=== PATIENT | male | born 1975 | race Two or more races ===

== ENCOUNTER 2024-08-18 08:00 | Outpatient (RCR) | payer OTHER, SELFPAY ==
--- NOTE | 2024-07-30 14:38 | PT.ODAYNRPT ---
PT Outpatient Daily Note OP Daily Note Outpatient Physical Therapy Treatment Date: 07/30/24 Visit Reasons: complex tear medial meniscus left knee Subjective: Pt reports L knee is doing ok, continues to have pain on the inside of the knee especially with prolonged walking. Objective: Please see flow sheet for ther ex list. Assessment: Added TG squat exercise, pt demonstrated good knee mechanics. Plan: Continue with POC. Length of Time (minutes) of Treatment: 30 Minutes Procedure Charges Therapeutic Exercise 30 minutes: Yes
--- NOTE | 2024-08-03 08:47 | PTNOTE_ITS ---
PT Outpatient Daily Note OP Daily Note Outpatient Physical Therapy Treatment Date: 08/03/24 Visit Reasons: complex tear medial meniscus left knee Subjective: Pt reports overall L knee is progressing but certain movement aggravate knee pain such as getting out of the car. Objective: Please see flow sheet for ther ex list. 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 Plan: Continue with POC. Length of Time (minutes) of Treatment: 30 Minutes Procedure Charges Therapeutic Exercise 30 minutes: Yes
--- NOTE | 2024-08-05 09:19 | PTNOTE_ITS ---
PT Outpatient Daily Note OP Daily Note Outpatient Physical Therapy Treatment Date: 08/05/24 Visit Reasons: complex tear medial meniscus left knee Subjective: Pt reports occasional L knee pain mentioned that he has pain with twisting motion. C/o clicking and popping. Objective: Please see flow sheet for ther ex list. 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 Plan: Continue with POC, assess response to treatment. Length of Time (minutes) of Treatment: 30 Minutes Procedure Charges Therapeutic Exercise 30 minutes: Yes
--- NOTE | 2024-08-11 08:43 | PT.ODS1RPT ---
PT OP Progress/Discharge Note Date of Service: 08/11/24 Progress Note/DC Note Progress Note/Discharge Note: Progress Note Patient Information Visit Reasons: complex tear medial meniscus left knee Medical Diagnosis: s83.232a Treatment Dx #1: Left Knee Pain Treatment Dx #2: Left Knee Mobility Deficits Service Continue Service or Discharge: Continue Service Certification Date Certification Dates: 08/11/24 ti 11/11/24 Status Subjective: Pt's knee is slowly feeling better. Pt mention he's been able to put more pressure through the knee with walking, standing, and light ADLs. Pt still notice some tightness around the knee leading to difficulty with certain movement. Pt has limitation with balance, uneven surfaces, stairs, and deep squat. Pt will follow up with surgeon next month. Objective: Left Knee AROM: 0 deg to 130 deg Left Knee MMTs: grossly 3+/5 Left Hip MMTs: grossly 3+/5 SLS: 5 sec Assessment: Pt is slowly progressing with knee ROM and strength allowing him to perform light ADLs, ambulate, and stand with less limitation. Pt has not met goals and will continue to benefit from physicla therapy to increase knee strength and stability; thank you for your referrals. Plan: Continue with PT/POC and add 8 sessions (2 x wk for 4 wks) Procedure Charges Therapeutic Exercise 45 minutes: Yes
--- NOTE | 2024-08-13 09:29 | PT.ODAYNRPT ---
PT Outpatient Daily Note OP Daily Note Outpatient Physical Therapy Treatment Date: 08/13/24 Visit Reasons: complex tear medial meniscus left knee Subjective: Pt reports he continues to have occasional sharp pain but overall progress but slow. Objective: Please see flow sheet for ther ex list. Assessment: Strengthening interventions progress slow due to pt pain response and c/o sharp pain. Plan: Continue with pOC. Length of Time (minutes) of Treatment: 30 Minutes Procedure Charges Therapeutic Exercise 30 minutes: Yes
--- NOTE | 2024-08-18 08:32 | PT.ODS1RPT ---
PT OP Progress/Discharge Note Date of Service: 08/18/24 Progress Note/DC Note Progress Note/Discharge Note: Progress Note Patient Information Visit Reasons: complex tear medial meniscus left knee Medical Diagnosis: s83.232a Treatment Dx #1: Left Knee Pain Service Continue Service or Discharge: Continue Service Certification Date Certification Dates: 08/18/24 to 11/18/24 Status Subjective: Pt's knee is slowly getting better. Pt has been able to stand, walk, and perform ADLs with less limitation. Pt still notice some pain within the knee after certain movement, however, improved over last few weeks. Pt recently seen worker's comp doctor and wants patient to continue physical therapy. Objective: Left Knee AROM: 0 deg to 125 deg Left Knee MMTs: grossly 3+/5 Left Hip MMTs: grossly 3/5 SLS: 3 sec Assessment: Pt is progressing with knee AROM and strength allowing him to start light ADLs, ambulate, stand, and chores with less limitation. Pt has not met set goals and will continue to benefit from physical therapy; thank you for your referrals. Plan: Continue with PT/POC and add 8 sessions (2 x wk for 4 wks) Procedure Charges Therapeutic Exercise 30 minutes: Yes
--- NOTE | 2024-09-27 09:20 | PT.ODS1RPT ---
PT OP Progress/Discharge Note Date of Service: 09/27/24 Progress Note/DC Note Progress Note/Discharge Note: DC Note Patient Information Visit Reasons: complex tear medial meniscus left knee Service Discharge Date: 09/27/24 Status Assessment: Pt has been seen for 13 visits (eval + 12 visits). Pt last treated on 08/18/24. At this time Pt will be d/c from care due to plan of care 09/21/24. Pt did not meet set goals in therapy; thank you for your referrals.
== END 2024-08-28 23:59 | disposition home or self-care (01) ==
LOC: CPTX 08:00
PROVIDERS: PCP Internal Medicine; Referring Provider Orthopaedic Surgery; Visit Provider Orthopaedic Surgery
DX: M25.562 Pain in left knee (principal); R26.2 Difficulty in walking, not elsewhere classified; S83.232D Complex tear of medial meniscus, current injury, left knee, subsequent encounter; X58.XXXD Exposure to other specified factors, subsequent encounter
CPT/HCPCS: 97110

== ENCOUNTER 2025-06-30 07:10 | Inpatient (IN) | payer BC, SELFPAY ==
[2025-06-30] VITALS (30 sets, daily range): BP systolic 94–195; BP diastolic 68–123; PULSE 80–139; RESP 13–24; TEMP 36.6–36.7; O2SAT 92–99; BMI 39.1
--- NOTE | 2025-06-30 07:26 | EKG_ITS ---
[facility] Test Date: 2025-06-30 Pat Name: MAL DEL RIO Department: Room: - Gender: Male Bi Tri Operator: : 1975 Requested By: Luis Mar (KAMRON) Order Number: [id number] Reading MD: Luis Mar (RHEUMATOLOGY NURSE) Measurements Intervals [place] Rate: 99 P: 38 VA: 173 QRS: 31 QRSD: 110 T: 24 QT: 363 QTc: 467 Interpretive Statements SINUS RHYTHM No previous ECG available for comparison /store/S0/[id number]/ecg/[id number].pdf
--- NOTE | 2025-06-30 07:26 | XR_ITS ---
Examination: CT brain head without contrast. 2-D sagittal coronal reconstructions Date and time of exam:June 30, 2025, 0821 hours INDICATIONS: Onset confusion dizziness today CTDI: vol (mGy):53.8 DLP: (mGycm):1131 Technique: Multiple CT axial sections of the brain have been obtained, 5 mm slice thickness. Contrast has not been administered. 2-D sagittal, coronal reconstructions have been obtained Low dose protocols were performed. One or more of the following dose reduction techniques were used; automated exposure control, adjustment of the mA and/or KV according to patient size, use of iterative reconstruction technique. Findings: No significant ventricular enlargement. Intra-axial or extra-axial hemorrhage density is not seen. No mass effect or midline shift Basal cisterns are not remarkable. Fourth ventricle is midline. Cranial vault intact. Impression: Negative for acute hemorrhage, mass effect or midline shift Advise clinical correlation follow-up accordingly, if symptoms persist, as clinically warranted, consider brain MRI follow-up
--- NOTE | 2025-06-30 07:26 | XR_ITS ---
Examination: AP chest single view Technique one AP portable semiupright chest single view Date and time: June 30, 2025, 0809 hours, comparison February 10, 2019 INDICATIONS: Shortness of breath beginning 2 weeks ago. FINDINGS: Normal heart size. Lungs are clear. Moderate osteopenia IMPRESSION: No active disease.
[2025-06-30 08:12] LABS: Basophils # (Auto) 0.0 Thou/mm3 (0.0-0.2); Basophils % (Auto) 1 % (0-2.5); Eosinophils # (Auto) 0.0 Thou/mm3 (0.0-0.5); Eosinophils % (Auto) 0 % (0-10); Hematocrit 42.8 % (41.0-53.0); Hemoglobin 15.5 g/dL (13.5-16.0); Immature Granulocytes Auto 0.06 Thou/mm3 (0.00-0.00); Lymphocytes # (Auto) 0.8 Thou/mm3 (1.0-4.8); Lymphocytes % (Auto) 16 % (10-50); Mean Corpuscular HGB Conc 36.2 g/dl (31.0-37.0); Mean Corpuscular Hemoglobin 30.9 pg (25.0-35.0); Mean Corpuscular Volume 85 fL (80-100); Monocytes # (Auto) 0.9 Thou/mm3 (0.0-0.8); Monocytes % (Auto) 18 % (0-12); Neutrophils # (Auto) 3.3 Thou/mm3 (1.8-7.7); Neutrophils % (Auto) 65 % (37-80); Nucleated Red Blood Cell # 0.00 Thou/mm3 (0.00-0.00); Nucleated Red Blood Cell % 0 /100 WBC (0); Platelet Count 105 Thou/mm3 (140-440); RDW Standard Deviation 44.5 fL (35.1-43.9); Red Blood Count 5.01 Miln/mm3 (4.50-5.90); White Blood Count 5.1 Thou/mm3 (3.8-10.6)
[2025-06-30 08:28] LABS: Ammonia < 10 uMol/L (11-32)
[2025-06-30 08:30] LABS: Alanine Aminotransferase 48 U/L (10-49); Albumin, Serum 4.3 gm/dL (3.5-5.0); Albumin/Globulin Ratio 1.5 (1.2-2.2); Alcohol, Blood Medical < 3.0 mg/dL (0-10.0); Alkaline Phosphatase 133 U/L (46-116); Anion Gap 14 (7-16); Aspartate Amino Transferase 100 U/L (0-34); BUN/Creatinine Ratio 12 Ratio (12-20); Bilirubin,Total 1.4 mg/dL (0.3-1.2); Blood Urea Nitrogen 7 mg/dL (9-23); Calcium 8.8 mg/dL (8.3-10.6); Calcium (Corrected) 8.8 mg/dL (8.5-10.1); Carbon Dioxide 20.5 mMol/L (20.0-31.0); Chloride 82 mMol/L (98-107); Creatinine (Component) 0.6 mg/dL (0.6-1.3); Estimated Creatinine Clearance 177.1 mL/min (>60); Globulin 2.9 gm/dL (2.3-3.5); Glucose 123 mg/dL (74-106); Magnesium 1.8 mg/dL (1.6-2.6); Osmolality,Calculated 233 (275-295); Potassium 3.0 mMol/L (3.4-5.1); Total Protein 7.2 gm/dL (5.7-8.2); Troponin I < 0.020 ng/mL (0.0-0.045); eGFR > 60 See Note
[2025-06-30 08:31] LABS: Sodium 116 mMol/L (136-145)
[2025-06-30 08:32] LABS: INR 1.0 (0.9-1.3); Partial Thromboplastin Time 28.2 Seconds (22.0-36.0); Prothrombin Time 10.9 Seconds (9.0-12.2)
[2025-06-30 08:38] LABS: B-Type Natriuretic Peptide 82 pg/mL (0-100)
[2025-06-30] MEDS: SODIUM CHLORIDE 3%(Hypertonic) 500 ML in PRE-MIXED 1 BAG 30 ML IV (08:50)
--- NOTE | 2025-06-30 08:50 | PD.EDALCOH ---
ED Alcohol RME/HPI General Chief Complaint: Neuro Symptoms/Deficit Stated Complaint: FOREGETFUL, OFF BALANCE Time Seen by Provider: 06/30/25 07:38 Arrival date/time: 06/30/25 07:10 RME / HPI RME / HPI narrative: 50-year-old male here for evaluation of alcohol abuse and possible withdrawal symptoms. States that he has been on a binge since mid April drinking heavily daily greater than 30 cans of beer at a time. Stopped drinking 2 days ago. Yesterday started noticing difficulty ambulating and today started noticing that he was feeling a bit more confused. Denies any chest pain, abdominal pain, shortness of breath, fever, cough, other acute symptoms at present. Notes is well that he has been trying to increase his water consumption over the past couple of days drinking more water than usual. MD complaint: alcohol withdrawal and alcohol dependence Related Data Home Medications ?Medication ?Instructions ?Recorded ?Confirmed ferrous sulfate 325 mg (65 mg 325 mg PO QDAY 03/17/23 03/17/23 iron) tablet (Iron (ferrous sulfate)) Previous Rx's ?Medication ?Instructions ?Recorded metoclopramide HCl 5 mg tablet 5 mg PO BID 90 days #180 tabs 03/17/23 (Reglan) pantoprazole 40 mg tablet,delayed 40 mg PO BID 90 days #180 tabs 03/17/23 release (Protonix) Allergies Allergy/AdvReac Type Severity Reaction Status Date / Time No Known Allergies Allergy Verified 06/30/25 07:15 Review of Systems Review of Systems Systems Reviewed: All systems reviewed, normal except as documented Past Medical History Past Medical History Comments PMH COMMENT: Alcoholism ED Exam Narrative Physical exam: Constitutional: Awake, alert, anxious, diaphoretic. HEENT: Normocephalic, atraumatic, extraocular movements intact. Neck: Supple CV: Tachycardic rate and regular rhythm, no murmurs/rubs/gallops Lungs: Clear to auscultation BL, no respiratory distress. Abd: Soft, NT, ND, no HSM noted to palpation Extremities: No deformities, no edema noted Neuro: AAOx3, CN 2-12 GIBL, no acute neuro deficit noted. Skin: Warm, dry, intact Initial CIWA scoring 15. Course Course Course Narrative: 0850h: Patient coming in for alcohol withdrawal symptoms, difficulty ambulating yesterday feeling unsteady and mild confusion today with some visual hallucinations today, slight auditory hallucinations. CIWA scoring about 15. Mildly tachycardic. Initial sodium is critical at 116. Hypertonic saline ordered at 30 mL an hour, dose of Versed ordered. Potassium low at 3.0, initial replacement IV will be ordered. Additionally ordered IV thiamine. 0930h: Case discussed with ICU for admission. They will be down to see patient for admission. 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 Care 06/30/25 07:26 Active EKG (ED ONLY) *Do not use* NOW Care 06/30/25 07:[address] head/brain wo con Stat Exams 06/30/25 07:26 Completed EKG (ED Only) Stat Exams 06/30/25 07:26 Draft XR chest 1V portable Stat Exams 06/30/25 07:26 Completed Alcohol, Blood Medical Stat Lab 06/30/25 07:00 Completed Ammonia Stat Lab 06/30/25 07:00 Completed B-Type Natriuretic Peptide Stat Lab 06/30/25 07:00 Completed CBC Stat Lab 06/30/25 07:00 Completed Comprehensive Metabolic Panel Stat Lab 06/30/25 07:00 Completed Drug Screen,Urine Stat Lab 06/30/25 09:00 Completed Magnesium Stat Lab 06/30/25 07:00 Completed Partial Thromboplastin Time Stat Lab 06/30/25 07:00 Completed Prothrombin Time with INR Stat Lab 06/30/25 07:00 Completed Troponin I Stat Lab 06/30/25 07:00 Completed Urinalysis, C/S if Indicated Stat Lab 06/30/25 08:50 Completed Midazolam Inj [Versed Inj] Med 06/30/25 08:48 Discontinued 2 mg IVP X1 ONE POTASSIUM CHL 10 mEq IVPB [Kcl Ivpb] Med 06/30/25 09:28 Ordered 10 meq in 100 ml IV X1 SODIUM CHLORIDE 3%(Hypertonic) [Hypertonic Saline 3%] Med 06/30/25 08:40 Active 500 ml Pre-Mixed [Pre-mixed Bag] 1 bag IV X1 Thiamine Inj [Vitamin B-1 Inj] 250 mg Med 06/30/25 09:00 Discontinued Sodium Chloride 0.9% [Ns] 100 ml IV X1 Vital Signs Vital signs: Vital Signs Temperature 98 F 06/30/25 07:20 Pulse Rate 103 H 06/30/25 07:20 Respiratory Rate 17 06/30/25 07:20 Blood Pressure 172/116 H 06/30/25 07:20 Pulse Oximetry (%) 96 06/30/25 07:20 Oxygen Delivery Method Room Air 06/30/25 07:20 Discharge Plan Plan Patient Disposition: Admit Acute Care w/in Hospital Patient condition on transfer: Stable Prescriptions/Referrals Prescriptions/Med Rec: No Action ferrous sulfate [Iron (ferrous sulfate)] 325 mg (65 mg iron) Tablet 325 mg PO QDAY pantoprazole [Protonix] 40 mg Tablet,Delayed Release (Dr/Ec) 40 mg PO BID 90 Days Qty: 180 3RF metoclopramide HCl [Reglan] 5 mg Tablet 5 mg PO BID 90 Days Qty: 180 3RF Referrals: Angelito Garcia MD [Primary Care Provider, Internal Medicine] - In 1 week Problem List Clinical Impression: Alcohol withdrawal, Acute hyponatremia Patient/Caregiver Discharge Instructions Print Language: Nauruan Stand Alone Forms: Liliane Award Info., Patient Portal Info Letter Alcohol Patient data External records reviewed:: [facility] previous records Clinical information provided by:: patient and family Social determinants that could affect healthcare access:: alcohol use Patient has the following chronic illnesses:: Alcoholism How is presenting disease/condition affected by chronic disease/condition?: caused by Evaluation data The following diagnostics were reviewed and interpreted by me:: lab results Lab and/or radiology exams considered but not ordered:: None Interpretation Summary: Laboratory Results WBC 5.1 Thou/mm3 (3.8-10.6) 06/30/25 07:00 RBC 5.01 Miln/mm3 (4.50-5.90) 06/30/25 07:00 Hgb 15.5 g/dL (13.5-16.0) 06/30/25 07:00 Hct 42.8 % (41.0-53.0) 06/30/25 07:00 MCV 85 fL (80-100) 06/30/25 07:00 MCH 30.9 pg (25.0-35.0) 06/30/25 07:00 MCHC 36.2 g/dl (31.0-37.0) 06/30/25 07:00 RDW Std Deviation 44.5 fL (35.1-43.9) H 06/30/25 07:00 Plt Count 105 Thou/mm3 (140-440) L 06/30/25 07:00 Neut % (Auto) 65 % (37-80) 06/30/25 07:00 Lymph % (Auto) 16 % (10-50) 06/30/25 07:00 [place] % (Auto) 18 % (0-12) H 06/30/25 07:00 Eos % (Auto) 0 % (0-10) 06/30/25 07:00 Baso % (Auto) 1 % (0-2.5) 06/30/25 07:00 Neut # (Auto) 3.3 Thou/mm3 (1.8-7.7) 06/30/25 07:00 Lymph # (Auto) 0.8 Thou/mm3 (1.0-4.8) L 06/30/25 07:00 [place] # (Auto) 0.9 Thou/mm3 (0.0-0.8) H 06/30/25 07:00 Eos # (Auto) 0.0 Thou/mm3 (0.0-0.5) 06/30/25 07:00 Baso # (Auto) 0.0 Thou/mm3 (0.0-0.2) 06/30/25 07:00 Immature Gran # (Auto) 0.06 Thou/mm3 (0.00-0.00) H 06/30/25 07:00 Absolute Nucleated RBC 0.00 Thou/mm3 (0.00-0.00) 06/30/25 07:00 Immature Gran % 1 % (0-0) H 06/30/25 07:00 Nucleated RBC % 0 /100 WBC (0) 06/30/25 07:00 PT 10.9 Seconds (9.0-12.2) 06/30/25 07:00 INR 1.0 (0.9-1.3) 06/30/25 07:00 APTT 28.2 Seconds (22.0-36.0) 06/30/25 07:00 Sodium 116 mMol/L (136-145) L* 06/30/25 07:00 Potassium 3.0 mMol/L (3.4-5.1) L 06/30/25 07:00 Chloride 82 mMol/L (98-107) L 06/30/25 07:00 Carbon Dioxide 20.5 mMol/L (20.0-31.0) 06/30/25 07:00 Anion Gap 14 (7-16) 06/30/25 07:00 BUN 7 mg/dL (9-23) L 06/30/25 07:00 Creatinine 0.6 mg/dL (0.6-1.3) 06/30/25 07:00 Estim Creat Clear Calc 177.1 mL/min (>60) 06/30/25 07:00 eGFR > 60 See Note (60-) 06/30/25 07:00 BUN/Creatinine Ratio 12 Ratio (12-20) 06/30/25 07:00 Glucose 123 mg/dL (74-106) H 06/30/25 07:00 Calculated Osmolality 233 (275-295) L 06/30/25 07:00 Calcium 8.8 mg/dL (8.3-10.6) 06/30/25 07:00 Corrected Calcium 8.8 mg/dL (8.5-10.1) 06/30/25 07:00 Magnesium 1.8 mg/dL (1.6-2.6) 06/30/25 07:00 Total Bilirubin 1.4 mg/dL (0.3-1.2) H 06/30/25 07:00 AST 100 U/L (0-34) H 06/30/25 07:00 ALT 48 U/L (10-49) 06/30/25 07:00 Alkaline Phosphatase 133 U/L (46-116) H 06/30/25 07:00 Ammonia < 10 uMol/L (11-32) L 06/30/25 07:00 Troponin I < 0.020 ng/mL (0.0-0.045) 06/30/25 07:00 B-Natriuretic Peptide 82 pg/mL (0-100) 06/30/25 07:00 Total Protein 7.2 gm/dL (5.7-8.2) 06/30/25 07:00 Albumin 4.3 gm/dL (3.5-5.0) 06/30/25 07:00 Globulin 2.9 gm/dL (2.3-3.5) 06/30/25 07:00 Albumin/Globulin Ratio 1.5 (1.2-2.2) 06/30/25 07:00 Ur Collection Type Clean Catch 06/30/25 08:50 Urine Color Yellow (Lt Yel-Yel) 06/30/25 08:50 Urine Clarity Turbid (Clear/Hazy) A 06/30/25 08:50 Urine pH 7.5 (5.0-7.0) H 06/30/25 08:50 Ur Specific [place] 1.016 (1.001-1.035) 06/30/25 08:50 Urine Protein 1+ (Neg - Trace) A 06/30/25 08:50 Urine Glucose (UA) Negative (Negative) 06/30/25 08:50 Urine Ketones 3+ (Negative) A 06/30/25 08:50 Urine Blood Trace (Negative) 06/30/25 08:50 Urine Nitrite Negative (Negative) 06/30/25 08:50 Urine Bilirubin Negative (Negative) 06/30/25 08:50 Urine Urobilinogen (Auto) 2.0 mg/dL (0.0-1.0) 06/30/25 08:50 Ur Leukocyte Esterase Negative (Negative) 06/30/25 08:50 Urine RBC 8 /hpf (0-3) H 06/30/25 08:50 Urine WBC 1 /hpf (0-5) 06/30/25 08:50 Ur Squamous Epith Cells 0 /hpf (0-5) 06/30/25 08:50 Urine Bacteria Rare (None) 06/30/25 08:50 Ur Culture Indicated? Not Indicated 06/30/25 08:50 Urine Opiates Screen Negative (Negative) 06/30/25 09:00 Urine Fentanyl Screen Negative (Negative) 06/30/25 09:00 Ur Barbiturates Screen Negative (Negative) 06/30/25 09:00 U Amphetamin/Meth Scrn Negative (Negative) 06/30/25 09:00 U Benzodiazepines Scrn Negative (Negative) 06/30/25 09:00 U Cocaine Metab Screen Negative (Negative) 06/30/25 09:00 U Marijuana (THC) Screen Negative (Negative) 06/30/25 09:00 Ethyl Alcohol < 3.0 mg/dL (0-10.0) 06/30/25 07:00 echnique: Multiple CT axial sections of the brain have been obtained, 5 mm slice thickness. Contrast has not been administered. 2-D sagittal, coronal reconstructions have been obtained Low dose protocols were performed. One or more of the following dose reduction techniques were used; automated exposure control, adjustment of the mA and/or KV according to patient size, use of iterative reconstruction technique. Findings: No significant ventricular enlargement. Intra-axial or extra-axial hemorrhage density is not seen. No mass effect or midline shift Basal cisterns are not remarkable. Fourth ventricle is midline. Cranial vault intact. Impression: Negative for acute hemorrhage, mass effect or midline shift Advise clinical correlation follow-up accordingly, if symptoms persist, as clinically warranted, consider brain MRI follow-up Chest x-ray no acute findings. Medications / Prescriptions Medications or Prescriptions considered but not ordered:: none Medication administrations:: Medication Administration History Sodium Chloride 500 ml/ IV (Miscellaneous Supplies) 500 mls @ 30 mls/hr IV X1 ONE Stop: 07/01/25 01:19 Last Admin: 06/30/25 08:50 Dose: 30 mls/hr Documented By: BY Potassium Chloride (Kcl Ivpb) 10 meq in 100 mls @ 100 mls/hr IV X1 ONE Stop: 06/30/25 10:27 Discontinued Medications Thiamine HCl 250 mg/ Sodium (Chloride) 102.5 mls @ 205 mls/hr IV X1 ONE Stop: 06/30/25 09:29 Midazolam HCl (Midazolam Inj 1 Mg/Ml Vial 2 Ml) 2 mg IVP X1 ONE Stop: 06/30/25 08:49 as above Consultations Consultation(s) initiated? (list below): Yes Diagnosis Differential diagnosis alcohol: alcohol withdrawal delirium, hypomagnesemia, alcohol intoxication, alcohol ketoacidosis, alcohol withdrawal syndrome and other Most likely diagnosis given after review of the tests above:: Hyponatremia, alcohol withdrawal, alcohol abuse Admission Indicated Admission indicated?: indicated Admission Request Was there a request for admission?: Yes Admission Attestation Admission request attestation: Discussed case with [] from Hospitalist service regarding admission. Discussed patients ED course, exam findings, labs, and radiology results. The Hospitalist [agrees,declines] to accept the patient for admission. Disposition Plan Disposition Plan: Admit
[2025-06-30 09:11] LABS: Collection Type, Urine Clean Catch; Squamous Epithelial Cell,Urine 0 /hpf (0-5)
[2025-06-30 09:18] LABS: Bacteria,Urine Rare; Bilirubin,Urine Negative (Negative); Blood,Urine Trace (Negative); Clarity,Urine Turbid (Clear/Hazy); Color,Urine Yellow (Lt Yel-Yel); Culture Indicated,Urine Not Indicated; Glucose, Urine Negative (Negative); Ketones,Urine 3+ (Negative); Leukocyte Esterase,Urine Negative (Negative); Nitrite,Urine Negative (Negative); PH,Urine 7.5 (5.0-7.0); Protein,Urine 1+ (Neg - Trace); RBC,Urine 8 /hpf (0-3); Specific Gravity,Urine 1.016 (1.001-1.035); Urobilinogen,Urine 2.0 mg/dL (0.0-1.0); WBC,Urine 1 /hpf (0-5)
[2025-06-30] MEDS: THIAMINE INJ 250 MG in SODIUM CHLORIDE 0.9% 100 ML 205 MG IV (09:18)
[2025-06-30] MEDS: MIDAZOLAM INJ 1 MG/ML VIAL 2 ML 2 MG IVP (09:18)
[2025-06-30 09:27] LABS: Amphetamine/Methamp Scrn,U Negative (Negative); Barbiturate Screen,Urine Negative (Negative); Benzodiazepines Screen,Urine Negative (Negative); Benzoylecgonine Screen, Ur Negative (Negative); Fentanyl Screen,Urine Negative (Negative); Opiate Screen,Urine Negative (Negative); THC Screen,Urine Negative (Negative)
[2025-06-30 09:53] LABS: Base Excess, Venous 1 (-3-3); O2 Saturation, Venous 96 % (96-97); PCO2, Venous 27 mmHg (36-56); PO2, Venous 73 mmHg (15-58); pH, Venous 7.52 (7.33-7.66)
[2025-06-30] MEDS: POTASSIUM CHL 10 mEq IVPB 10 MEQ/100 ML BAG 100 MEQ IV (10:16)
--- NOTE | 2025-06-30 10:26 | ESPR_ITS ---
Documentation for date of: 06/30/25 Subjective Subjective Interval history: This is a 50-year-old male who presents to the ER for confusion. Patient's significant other notes that he has been drinking 30+ beers a day for the last 6 to 8 weeks. He was starting to wean himself down 2 days ago and only drank approximately 12. He had none on Friday or Friday because his partner refused to buy him anymore. Yesterday and this morning he was noted to be somewhat confused and had memory difficulties. He also had an abnormal gait and stated he was walking as if he were drunk even though he had not had any alcohol. Given these concerns his partner brought him to the ER. States that he has gone through withdrawal in the past and has had the shakes before. Denies ever having any seizures related to alcohol withdrawal. He denies any chest pain, shortness of breath, cough, fevers, chills or abdominal pain. Does note that he has had significant diarrhea for the last several days. PMH: GERD, status post gastric bypass, status post knee surgery for torn meniscus, status post rotator cuff tear repair Past social history: Alcohol abuse, has utilized cocaine in the past his last use was 6 months ago Meds: Vitamins ROS: As per HPI otherwise negative Critical Care Note Critical care time (min.): 0 Exam Vital Signs Temp Pulse Resp BP Pulse Ox O2 Del Method 98.0 F 96 18 143/99 H 94 L Room Air 06/30/25 07:38 06/30/25 09:00 06/30/25 09:00 06/30/25 09:00 06/30/25 09:00 06/30/25 09:00 Narrative Exam General-no acute distress, awake alert oriented x 4, obese HEENT-normocephalic, atraumatic, oral mucosa is dry, sclera icteric, EOMI Chest-lungs clear to auscultation bilaterally, heart regular rhythmic, no bruits murmurs auscultated times exam, no increased work of breathing, no use of accessory muscles Abdomen-obese, soft, nontender, bowel sounds present, no rebound or guarding Extremities-no edema, pulses palpable, no clubbing or cyanosis, no mottling, no focal neurological deficits, no shaking tremors noted Drips Hypertonic saline Physical Exam Completion Physical Exam Complete?: Yes Objective - Studio Operations Engineer In Charge Labs 07/01/25 05:00 07/01/25 09:00 Labs: Laboratory Results - last 24 hr 06/30/25 06/30/25 06/30/25 07:00 08:50 09:00 WBC 5.1 RBC 5.01 Hgb 15.5 Hct 42.8 MCV 85 MCH 30.9 MCHC 36.2 RDW Std Deviation 44.5 H Plt Count 105 L Neut % (Auto) 65 Lymph % (Auto) 16 [place] % (Auto) 18 H Eos % (Auto) 0 Baso % (Auto) 1 Neut # (Auto) 3.3 Lymph # (Auto) 0.8 L [place] # (Auto) 0.9 H Eos # (Auto) 0.0 Baso # (Auto) 0.0 Immature Gran # (Auto) 0.06 H Absolute Nucleated RBC 0.00 Immature Gran % 1 H Nucleated RBC % 0 PT 10.9 INR 1.0 APTT 28.2 VBG pH VBG pCO2 VBG pO2 VBG O2 Sat (Isauro) VBG Base Excess Sodium 116 L* Potassium 3.0 L Chloride 82 L Carbon Dioxide 20.5 Anion Gap 14 BUN 7 L Creatinine 0.6 Estim Creat Clear Calc 177.1 eGFR > 60 BUN/Creatinine Ratio 12 Glucose 123 H Calculated Osmolality 233 L Calcium 8.8 Corrected Calcium 8.8 Magnesium 1.8 Total Bilirubin 1.4 H AST 100 H ALT 48 Alkaline Phosphatase 133 H Ammonia < 10 L Troponin I < 0.020 B-Natriuretic Peptide 82 Total Protein 7.2 Albumin 4.3 Globulin 2.9 Albumin/Globulin Ratio 1.5 Ur Collection Type Clean Catch Urine Color Yellow Urine Clarity Turbid A Urine pH 7.5 H Ur Specific [place] 1.016 Urine Protein 1+ A Urine Glucose (UA) Negative Urine Ketones 3+ A Urine Blood Trace Urine Nitrite Negative Urine Bilirubin Negative Urine Urobilinogen (Auto) 2.0 Ur Leukocyte Esterase Negative Urine RBC 8 H Urine WBC 1 Ur Squamous Epith Cells 0 Urine Bacteria Rare Ur Culture Indicated? Not Indicated Urine Opiates Screen Negative Urine Fentanyl Screen Negative Ur Barbiturates Screen Negative U Amphetamin/Meth Scrn Negative U Benzodiazepines Scrn Negative U Cocaine Metab Screen Negative U Marijuana (THC) Screen Negative Ethyl Alcohol < 3.0 06/30/25 09:47 WBC RBC Hgb Hct MCV MCH MCHC RDW Std Deviation Plt Count Neut % (Auto) Lymph % (Auto) [place] % (Auto) Eos % (Auto) Baso % (Auto) Neut # (Auto) Lymph # (Auto) [place] # (Auto) Eos # (Auto) Baso # (Auto) Immature Gran # (Auto) Absolute Nucleated RBC Immature Gran % Nucleated RBC % PT INR APTT VBG pH 7.52 VBG pCO2 27 L VBG pO2 73 H VBG O2 Sat (Isauro) 96 VBG Base Excess 1 Sodium Potassium Chloride Carbon Dioxide Anion Gap BUN Creatinine Estim Creat Clear Calc eGFR BUN/Creatinine Ratio Glucose Calculated Osmolality Calcium Corrected Calcium Magnesium Total Bilirubin AST ALT Alkaline Phosphatase Ammonia Troponin I B-Natriuretic Peptide Total Protein Albumin Globulin Albumin/Globulin Ratio Ur Collection Type Urine Color Urine Clarity Urine pH Ur Specific [place] Urine Protein Urine Glucose (UA) Urine Ketones Urine Blood Urine Nitrite Urine Bilirubin Urine Urobilinogen (Auto) Ur Leukocyte Esterase Urine RBC Urine WBC Ur Squamous Epith Cells Urine Bacteria Ur Culture Indicated? Urine Opiates Screen Urine Fentanyl Screen Ur Barbiturates Screen U Amphetamin/Meth Scrn U Benzodiazepines Scrn U Cocaine Metab Screen U Marijuana (THC) Screen Ethyl Alcohol Assessment & Plan Additional Assessment Additional Assessment: In brief this is a 50-year-old male being admitted to the ICU for severe symptomatic hyponatremia on hypertonic saline a/p DIRECTOR OF MARKETING COMMUNICATIONS ETOH withdrawal- start on CIWA, give thiamine and folate CV HTN urgency- in the setting of withdrawal, prn labetalol and tx withdrawal Resp stable Renal HypoNa- 2/2 beer potomania, anticipate that will self correct with fluid restrict. given sxs of mental confusion it is reasonable to start HTS however once Na is 120 would stop. HypoK- replete PO GI ETOH hepatitis- AST elevated, will fu on AM labs Endo stable Heme Thrombocytopenia- 2/2 ETOH abuse - no active bleeding DVT proph- lovenox ID stable case d/w ICU team labs, imaging, records reviewed ~75min required for eval, exam, review, intervention, discussion and formulation of POC Provider Notation Provider Notation: Although this document has been carefully reviewed, there may still be some phonetic and other typographical errors. These errors are purely grammatical due to imperfections in the software program and should not be construed in any way to compromise the substance of the patient's medical care during this visit. Thank you for the opportunity and privilege in assisting you with this patient's care and management.
[2025-06-30 10:29] LABS: Magnesium 1.8 mg/dL (1.6-2.6)
[2025-06-30] MEDS: ENOXAPARIN SOD INJ 40 MG/0.4 ML SYRINGE SC (11:13)
[2025-06-30 11:36] LABS: Sodium 118 mMol/L (136-145)
--- NOTE | 2025-06-30 11:49 | XR_ITS ---
Examination: Abdomen sonogram, Limited Date and time of exam: June 30, 2025, 1216 hours INDICATIONS: Elevated liver function tests on laboratory examination today. Technique: Real-time tilley scale transabdominal sonographic images of the upper abdomen obtained. Findings: Negative for gallstones Gallbladder wall 0.40 cm no edema Common bile duct pancreas obscured by bowel gas Liver 19.1 cm fatty infiltration no focal liver lesions Normal hepatopedal portal venous flow Patent IVC IMPRESSION: Negative for gallstones Borderline thickening gallbladder wall 0.40 cm, clinical correlation advised, consider HIDA scan or MRCP follow-up to exclude cholecystitis Moderate hepatomegaly
--- NOTE | 2025-06-30 11:56 | PC.NURSE ---
sodium fluids to be stopped per MD @ [id number]
[2025-06-30] MEDS: DIAZEPAM INJ 5 MG/ML VIAL 2 ML IVP ×2 (12:17→20:00)
[2025-06-30] MEDS: FOLIC ACID 1 MG TABLET PO (12:20)
--- NOTE | 2025-06-30 12:30 | ESHP_ITS ---
<Statement entered by Glenn Coelho MD - 06/30/25 15:04> This patient is a 50-year-old male with past medical history of GERD presented to the ED on 06/30/2025 with chief complaint of confusion and loss of balance. Patient reports to have history of drinking alcohol moderately over the past 6 weeks exceeding 30 cans of beer every day with minimal food intake. Patient's partner was present at the bedside and she reported that she has noticed patient's appetite being reduced and he has been drinking a lot of water. She also reported that she noticed him getting confused with memory difficulties. Patient endorsed having shaking and visual hallucinations where he decided to take medical attention. He also had a week episode of loose stools. He endorsed dry heaves without vomiting. CIWA score was 7. Initial vitals showed blood pressure elevated at 172/116 heart rate 103. Labs were significant for sodium 116, potassium 3.0. Kidney functions were normal. T. bili 1.4. Elevated AST 100. Ammonia less than 10. Urinalysis showed proteins and ketones. Head CT showed no acute hemorrhage, mass effect or midline shift. Patient is admitted for management of hyponatremia and alcohol withdrawal with possible neurological symptoms. Patient was started on hypertonic saline in the ED. Will continue with sodium checks Q1 hourly. Fluid restriction up to 1 L. Goal of sodium is up to 6 mEq in first 24 hours. For the patient it is up to 122 until morning 7 AM. If rapidly corrected, consider D5W. Electrolytes were repleted. IV labetalol 10 mg was added as needed due to hypertensive urgency for systolic blood pressure above 180 and diastolic blood pressure about 105. Will likely follow-up with sodium checks and neurochecks. I discussed and supervised with the summer intern physician who took care of this patient. I personally saw and examined the patient. I agree with most of the assessment and plan. Disclaimer: Despite multiple revisions, due to the dictation software being used, the document bellow may not be free of grammatical errors including phonetic/typographic errors. However, this does not deter from our commitment to providing health care in the patient's best interest in mind. Plan of care discussed with Condemnation Engineer ,Dr. David Coelho MD PGY-3 Documentation for date of: 06/30/25 HPI History of Present Illness History of present illness: 50-year-old male with a past medical history of obstructive sleep apnea, GERD and alcohol use disorder who presented to the ED on 06/30/2025 with confusion and loss of balance. Patient reports heavy alcohol intake over the past six weeks, sometimes exceeding 30 cans of alcohol per day, with minimal food intake. Patient's last meal was about two weeks ago. His last alcoholic drink was two days ago (06/28 at 10 PM). For the past day or two, the patient has experienced abnormal gait. He sought medical attention after his noticed patient having increasing confusion and memory difficulties. The patient denies any falls, loss of consciousness, or seizure-like activity. Patient has experienced alcohol withdrawal symptoms in the past including shaking and visual and auditory hallucinations but this is his first time seeking medical care for these symptoms. He reports significant diarrhea for the last several days. Patient reports that he typically experiences diarrhea while drinking alcohol and not related to food intake, and denies blood in the stool. Patient endorses tremors, diaphoresis, and visual and auditory hallucinations but denies chest pain, palpitations, exertion, abdominal pain, fevers, or vomiting. ED Course: -Initial vitals were: BP 172/116, HR 103, RR 17, T 98F, O2 sat 96 on room air -Labs significant for: Plt count 105 (L), sodium 116 (L), potassium 3.0 (L), chloride 82 (L), BUN 7 (L), glucose 123 (H), Total bilirubin 1.4 (H), AST 100 (H), ALP 133 (H), Ammonia < 10 (L), UA showed 1+ protein, 3+ ketones, and RBCs. -Imaging included: CXR within normal limits; Head CT negative for acute hemorrhage, mass effect or midline shift. -In the ED, patient was given: Hypertonic saline, Potassium 10 mEq, Thiamine, Midazolam 2mg. Past Medical History: GERD, Obstructive sleep apnea Past Surgical History: gastric bypass, Left knee surgery for torn meniscus, Left rotator cuff tear repair. Family History: non-contributory. Social History: - Smoking: denies - Alcohol: heavy alcohol use - Illicit drugs: cocaine in the past, last use was 6 months ago. 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 Current Medications: none. Allergies: No known drug allergies. Patient admitted to the ICU for severe hyponatremia and alcohol withdrawal. Review of Systems Review of Systems Narrative Review of Systems: All review of systems are negative except as listed above in the HPI. Exam Vital Signs Temp Pulse Resp BP Pulse Ox O2 Del Method 98.0 F 97 20 148/104 H 93 L Room Air 06/30/25 07:38 06/30/25 11:05 06/30/25 11:05 06/30/25 11:05 06/30/25 11:05 06/30/25 11:05 Narrative Exam Physical Exam General: Awake and in no acute distress. Conversational and non-toxic appearing. Obese body habitus. Head: Normocephalic, atraumatic. Eyes: Pupils equally round and reactive to light. Anicteric. Mouth/Throat: Dry mucous membranes. Dry lips. No tongue lacerations. Heart: Regular rate and rhythm, no murmurs. No JVD. Lungs: Clear to auscultation with no wheezing or crackles. Non-labored respirations, symmetric chest rise, no use of accessory muscles. Abdomen: Soft, nontender. No guarding or rebound tenderness. No spider angiomas, no caput medusae, no fluid shift. Soft epigastric mass on palpation. Neurologic: Alert and oriented x4, no gross neurological deficit, and patient able to move all 4 extremities. Extremities: No edema. Posterior tibial pulses are 2+ bilaterally. 2+ radial pulse bilaterally. No clubbing or cyanosis. No mottling. Mild shaking hand tremors. 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 Skin: No rash. Bruising on right lateral lower leg. No jaundice. Psychiatric: Cooperative, anxious. Results: Labs 07/01/25 05:00 07/01/25 09:00 Labs: Short CBC 06/30/25 Range/Units 07:00 WBC 5.1 (3.8-10.6) Thou/mm3 Hgb 15.5 (13.5-16.0) g/dL Hct 42.8 (41.0-53.0) % Plt Count 105 L (140-440) Thou/mm3 BMP 06/30/25 06/30/25 07:00 11:07 Sodium 116 L* 118 L* Potassium 3.0 L Chloride 82 L Carbon Dioxide 20.5 BUN 7 L Creatinine 0.6 Glucose 123 H Calcium 8.8 Cardiac Enzymes 06/30/25 Range/Units 07:00 Troponin I < 0.020 (0.0-0.045) ng/mL Liver Function 06/30/25 Range/Units 07:00 Total Bilirubin 1.4 H (0.3-1.2) mg/dL AST 100 H (0-34) U/L ALT 48 (10-49) U/L Alkaline Phosphatase 133 H (46-116) U/L Albumin 4.3 (3.5-5.0) gm/dL Urine 06/30/25 Range/Units 08:50 Urine Color Yellow (Lt Yel-Yel) Urine Clarity Turbid A (Clear/Hazy) Urine pH 7.5 H (5.0-7.0) Ur Specific [place] 1.016 (1.001-1.035) Urine Protein 1+ A (Neg - Trace) Urine Glucose (UA) Negative (Negative) ABG Interpretation ABG results: 06/30/25 09:47 VBG pH 7.52 VBG pCO2 27 L VBG pO2 73 H VBG Base Excess 1 Quality Measures Quality Measures none Medications Home Medications and Allergies Home Medications ?Medication ?Instructions ?Recorded ?Confirmed ?Type No Known Home Medications 06/30/250 11/23 History Allergies Allergy/AdvReac Type Severity Reaction Status Date / Time No Known Allergies Allergy Verified 06/30/25 07:15 Visit Medications Diazepam (Diazepam Inj 5 Mg/Ml Vial 2 Ml) 2.5 mg IVP Q2HR PRN PRN Reason: CIWA SCORE 8-13 Stop: 07/05/25 11:45 Diazepam (Diazepam Inj 5 Mg/Ml Vial 2 Ml) 5 mg IVP Q2HR PRN PRN Reason: CIWA SCORE 14-19 Stop: 07/05/25 11:45 Last Admin: 06/30/25 12:17 Dose: 5 mg Diazepam (Diazepam Inj 5 Mg/Ml Vial 2 Ml) 10 mg IVP Q2HR PRN PRN Reason: CIWA SCORE 20-25 Stop: 07/05/25 11:45 Enoxaparin Sodium (Enoxaparin Sod Inj 40 Mg/0.4 Ml Syringe) 40 mg SC QDAY [facility] Stop: 07/14/25 10:59 Last Admin: 06/30/25 11:13 Dose: 40 mg Folic Acid (Folic Acid 1 Mg Tablet) 1 mg PO QDAY [facility] Stop: 07/30/25 12:14 Last Admin: 06/30/25 12:20 Dose: 1 mg Sodium Chloride 500 ml/ IV (Miscellaneous Supplies) 500 mls @ 30 mls/hr IV X1 ONE On Hold: 06/30/25 11:34 Stop: 07/01/25 01:19 Last Infusion: 06/30/25 11:40 Dose: 30 mls/hr Labetalol HCl (Labetalol Inj 5 Mg/Ml Vial 20 Ml) 10 mg IVP Q10M PRN PRN Reason: SBP > 180 or DBP > 110 Stop: 06/30/25 13:41 Ondansetron HCl (Ondansetron Inj 2 Mg/Ml Inj 2 Ml) 4 mg IVP Q6H PRN; Protocol PRN Reason: NAUSEA OR VOMITING Stop: 07/30/25 10:46 Pantoprazole Sodium (Pantoprazole Inj 40 Mg Vial) 40 mg IVP QDAY [facility] Stop: 07/30/25 10:59 Last Admin: 06/30/25 11:13 Dose: 40 mg Thiamine HCl (Thiamine 100 Mg Tablet) 100 mg PO QDAY [facility] Stop: 07/31/25 08:59 Discontinued Medications Thiamine HCl 250 mg/ Sodium (Chloride) 102.5 mls @ 205 mls/hr IV X1 ONE Stop: 06/30/25 09:29 Last Infusion: 06/30/25 10:57 Dose: Infused Potassium Chloride (Kcl Ivpb) 10 meq in 100 mls @ 100 mls/hr IV X1 ONE Stop: 06/30/25 10:27 Last Infusion: 06/30/25 11:20 Dose: Infused Midazolam HCl (Midazolam Inj 1 Mg/Ml Vial 2 Ml) 2 mg IVP X1 ONE Stop: 06/30/25 08:49 Last Admin: 06/30/25 09:18 Dose: 2 mg Potassium Chloride (Potassium Chloride 20 Meq Tabcr) 20 meq PO X1 ONE Stop: 06/30/25 11:59 Last Admin: 06/30/25 12:17 Dose: 20 meq Potassium Chloride (Potassium Chloride 20 Meq Tabcr) 40 meq PO X1 ONE Stop: 06/30/25 11:59 Last Admin: 06/30/25 12:17 Dose: 40 meq Assessment & Plan Plan A 50-year-old male with past medical history significant for GERD, obstructive sleep apnea and alcohol use disorder presents with confusion and abnormal gait, admitted to ICU for severe symptomatic hyponatremia and alcohol withdrawal. NEURO #Alcohol withdrawal #Alcohol use disorder Patient experiencing confusion, visual and auditory hallucination and mild hand tremors. These symptoms, along with history of heavy alcohol use and recent cessation, raise concern for withdrawal-related complications. DDx: metabolic derangement vs wernicke's encephalopathy vs stroke/TIA. Dx: - CIWA 13 on ICU admission, indicating moderate alcohol withdrawal. Rx: - Start CIWA protocol to titrate Valium as needed for symptom control. - Start thiamine 100mg PO daily to prevent and treat Wernicke's encephalopathy. - Start folic acid 1mg PO daily. - Monitor for seizures and delirium tremens. - Neuro check Q4HR. CARDIO #Hypertensive urgency In setting of alcohol withdrawal. Per patient, no history of hypertension. Dx: - Blood pressure on admission was 176/116. Rx: - Labetalol 10mg Q10M PRN for SBP >180 or DBP> 110. Hold for HR < 70. - Continue CIWA protocol for alcohol withdrawal symptoms. PULM #Obstructive sleep apnea Patient uses CPAP at night at home. Rx: - Patient brought in personal CPAP machine; functionality verified by hospital engineering. - Patient is familiar with device and able to use it independently. GI #GERD Rx: - IV Protonix 40 mg QD #Alcohol hepatitis #Transaminits Supsected alcohol-related liver injury based on clinical history and transaminitis pattern. Dx: - Admission AST 100. - Liver ultrasound: Negative for gallstones. Borderline thickening gallbladder wall. Moderate hepatomegaly. Rx: - Continue to monitor CMP and LFTs. - Continue thiamine 100mg PO daily and folic acid 1 mg PO daily. #Hiatal Hernia Dx: - Documented on EGD report in 02/2023. Rx: - Continue GERD management as above. NEPHRO #Severe hyponatremia with possible symptoms #Hypokalemia #Hypochloremia DDx: - Beer potomania: most likely given heavy alcohol use and poor nutritional intake. - Adrenal insufficiency: less likely given hypokalemia. - GI losses via diarrhea: possible contributor. - Intracranial patholgoy (trauma, stroke): unlikely given normal head CT and no history of trauma or focal deficits. Dx: - Admission sodium 116, potassium 3.0, chloride 82. Magnesium levels within normal limits. - Urine electrolytes - pending. - Head CT negative for acute hemorrhage, mass effect or midline shift. Rx: - Hypertonic saline started in ED since patient had mental confusion. Discontinued upon ICU admission when mental status returned to baseline. - Fluid restriction of 1000 mL/day. - Strict I&Qs. - Sodium checks Q2HR. - Goal sodium is 122 mmol/L over first 24 hours (avoid over-corrections of 8 or more mEq/L in 24 hours to avoid osmotic demyeliation syndrome). - Repleted potassium with 60 mEq. Continue to monitor and replete as needed. HEME #Thrombocytopenia Likely secondary to chronic alcohol abuse, as ethanol is toxic to megakaryocyte precursors in the bone marrow, leading to impaired platelet production. Dx: - Admission Plt 105. Rx: - Monitor CBC daily to track platelet trend. - Continue to monitor for signs of bleeding, including petechiae, bruising, or mucosal bleeding. - It Associate about alcohol cessation. - Levenox 40mg SQ QD for DVT prophylaxis. ENDO #No active problems ID #No active problems Health Maintenance DVT prophylaxis: Lovenox GI prophylaxis: None. IV protonix for GERD. Diet: Regular diet with fluid restriction 1L. Garrett: none Lines: Peripheral IV, Central IV Antibiotics: none CODE STATUS: FULL Patient plan of care was discussed with my senior resident and attending Dr. Hernandez. Trey Oliver, DO Internal Medicine, PGY-1
[2025-06-30 13:11] LABS: Sodium 121 mMol/L (136-145)
[2025-06-30 13:51] LABS: Sodium 121 mMol/L (136-145)
[2025-06-30 14:43] LABS: Sodium 121 mMol/L (136-145)
[2025-06-30 15:42] LABS: Sodium 122 mMol/L (136-145)
[2025-06-30 16:31] LABS: Sodium 123 mMol/L (136-145)
[2025-06-30] MEDS: ACETAMINOPHEN 325 MG TABLET PO (16:54)
[2025-06-30] MEDS: FAMOTIDINE 20 MG TABLET PO (16:54)
[2025-06-30] MEDS: DEXTROSE 5%-WATER 1,000 ML 75 ML IV (16:58)
[2025-06-30] MEDS: LABETALOL INJ 5 MG/ML VIAL 20 ML 10 MG IVP (19:21)
[2025-06-30 19:35] LABS: Sodium 123 mMol/L (136-145)
[2025-06-30 21:30] LABS: Potassium 3.9 mMol/L (3.4-5.1)
[2025-06-30 21:45] LABS: Sodium 122 mMol/L (136-145)
[2025-06-30] MEDS: Magnesium Sulfate 2 GM Ivpb 2 GM/50 ML BAG IV (22:19)
[2025-06-30 23:28] LABS: Sodium 123 mMol/L (136-145)
[2025-07-01] VITALS (26 sets, daily range): BP systolic 106–154; BP diastolic 75–114; PULSE 76–187; RESP 13–24; TEMP 35.6–36.9; O2SAT 95–99; BMI 38.5
[2025-07-01 00:54] LABS: Sodium 122 mMol/L (136-145)
[2025-07-01] MEDS: DEXTROSE 5%-WATER 1,000 ML 25 ML IV (02:10)
[2025-07-01 02:33] LABS: Sodium 123 mMol/L (136-145)
[2025-07-01] MEDS: DIAZEPAM INJ 5 MG/ML VIAL 2 ML IVP (05:15)
[2025-07-01] MEDS: LABETALOL INJ 5 MG/ML VIAL 20 ML 10 MG IVP (05:16)
[2025-07-01 05:49] LABS: Basophils # (Auto) 0.1 Thou/mm3 (0.0-0.2); Basophils % (Auto) 1 % (0-2.5); Eosinophils # (Auto) 0.0 Thou/mm3 (0.0-0.5); Eosinophils % (Auto) 1 % (0-10); Hematocrit 42.6 % (41.0-53.0); Hemoglobin 15.0 g/dL (13.5-16.0); Immature Granulocytes Auto 0.08 Thou/mm3 (0.00-0.00); Lymphocytes # (Auto) 1.1 Thou/mm3 (1.0-4.8); Lymphocytes % (Auto) 20 % (10-50); Mean Corpuscular HGB Conc 35.2 g/dl (31.0-37.0); Mean Corpuscular Hemoglobin 31.1 pg (25.0-35.0); Mean Corpuscular Volume 88 fL (80-100); Monocytes # (Auto) 1.1 Thou/mm3 (0.0-0.8); Monocytes % (Auto) 20 % (0-12); Neutrophils # (Auto) 3.0 Thou/mm3 (1.8-7.7); Neutrophils % (Auto) 56 % (37-80); Nucleated Red Blood Cell # 0.00 Thou/mm3 (0.00-0.00); Nucleated Red Blood Cell % 0 /100 WBC (0); Platelet Count 126 Thou/mm3 (140-440); RDW Standard Deviation 47.8 fL (35.1-43.9); Red Blood Count 4.82 Miln/mm3 (4.50-5.90); White Blood Count 5.3 Thou/mm3 (3.8-10.6)
[2025-07-01 05:52] LABS: INR 1.0 (0.9-1.3); Partial Thromboplastin Time 28.1 Seconds (22.0-36.0); Prothrombin Time 10.9 Seconds (9.0-12.2)
[2025-07-01 05:57] LABS: Alanine Aminotransferase 47 U/L (10-49); Albumin, Serum 4.0 gm/dL (3.5-5.0); Albumin/Globulin Ratio 1.5 (1.2-2.2); Alkaline Phosphatase 118 U/L (46-116); Anion Gap 10 (7-16); Aspartate Amino Transferase 66 U/L (0-34); BUN/Creatinine Ratio 10 Ratio (12-20); Bilirubin,Total 0.9 mg/dL (0.3-1.2); Blood Urea Nitrogen 6 mg/dL (9-23); Calcium 8.6 mg/dL (8.3-10.6); Calcium (Corrected) 8.6 mg/dL (8.5-10.1); Carbon Dioxide 24.9 mMol/L (20.0-31.0); Cardiac Risk Estimate 2.3 RATIO (4.0-6.7); Chloride 89 mMol/L (98-107); Cholesterol 161 mg/dL (132-200); Creatinine (Component) 0.6 mg/dL (0.6-1.3); Estimated Creatinine Clearance 177.1 mL/min (>60); Globulin 2.7 gm/dL (2.3-3.5); Glucose 96 mg/dL (74-106); HDL Cholesterol 71 mg/dL (40-60); LDL Cholesterol,Calculated 77 mg/dL (0-130); Magnesium 2.6 mg/dL (1.6-2.6); Osmolality,Calculated 247 (275-295); Phosphorous 2.5 mg/dL (2.4-5.1); Potassium 3.3 mMol/L (3.4-5.1); Sodium 124 mMol/L (136-145); Total Protein 6.7 gm/dL (5.7-8.2); Triglycerides 64 mg/dL (30-150); eGFR > 60 See Note
[2025-07-01 06:04] LABS: Glucose Estimated Average 103 mg/dL (80-131); Hemoglobin A1C 5.2 % Hgb (4.8-6.0)
[2025-07-01 07:52] LABS: Sodium 122 mMol/L (136-145)
[2025-07-01] MEDS: NAPH,KPH MBDB 1 PACKET (1.5 GM) PO (08:51)
[2025-07-01] MEDS: ENOXAPARIN SOD INJ 40 MG/0.4 ML SYRINGE SC (08:52)
[2025-07-01] MEDS: Magnesium Sulfate 2 GM Ivpb 2 GM/50 ML BAG IV (08:52)
[2025-07-01] MEDS: FOLIC ACID 1 MG TABLET PO (08:53)
[2025-07-01] MEDS: PANTOPRAZOLE 40 MG TABLET PO (08:54)
[2025-07-01] MEDS: THIAMINE 100 MG TABLET PO (08:54)
[2025-07-01 09:41] LABS: Sodium 124 mMol/L (136-145)
--- NOTE | 2025-07-01 10:32 | ESPR_ITS ---
<Statement entered by Glenn Coelho MD - 07/01/25 16:19> Patient was seen and examined in the ICU. Overnight, patient's sodium dropped to 122 therefore D5W was discontinued. This morning, patient's sodium level increased to 123 spontaneously. Patient was doing well and had mild improvement in his symptoms. He received Ciwa protocol with diazepam as his CIWA score was 14 at night. Blood pressure continues to remain elevated therefore lisinopril 20 mg was started. Urine output was 2.6 L over 24 hours. Due to improvement in his sodium to 125 patient will be downgraded to floors for continuation of care. Will continue fluid restriction. All labs and orders were reviewed. I discussed and supervised with the sports management internship physician who took care of this patient. I personally saw and examined the patient. I agree with most of the assessment and plan. Disclaimer: Despite multiple revisions, due to the dictation software being used, the document bellow may not be free of grammatical errors including phonetic/typographic errors. However, this does not deter from our commitment to providing health care in the patient's best interest in mind. Plan of care discussed with montessori toddler teacher Dr. David Coelho MD PGY-3 Documentation for date of: 07/01/25 Subjective Subjective Interval history: 50-year-old male with a past medical history of obstructive sleep apnea, GERD and alcohol use disorder presented to the ED on 06/30/2025 with confusion and loss of balance. Patient reports heavy alcohol intake over the past six weeks, sometimes exceeding 30 cans of alcohol per day, with minimal food intake. Patient's last meal was about two weeks ago. His last alcoholic drink was two days ago (06/28 at 10 PM). For the past day or two, the patient has experienced abnormal gait. He sought medical attention after his noticed patient having increasing confusion and memory difficulties. The patient denies any falls, loss of consciousness, or seizure-like activity. Patient has experienced alcohol withdrawal symptoms in the past including shaking, visual and auditory hallucinations but this is his first time seeking medical care for these symptoms. He reports significant diarrhea for the last several days. Patient reports that he typically experiences diarrhea while drinking alcohol and not related to food intake, and denies blood in the stool. Patient endorses tremors, diaphoresis, and visual and auditory hallucinations but denies chest pain, palpitations, exertion, abdominal pain, fevers, or vomiting. 07/01/2025: Overnight, the patient's sodium levels were monitored every two hours. Initially, the sodium level decreased to 122 while the patient was on D5W, prompting the discontinuation of the solution. At 2:17 AM, the sodium level increased slightly to 123, at which point D5W was reinitiated at a rate of 25 mL/hr for one hour. By 5:00 AM, the sodium level had risen to 124. As the patient approached the 24-hour althea with sodium goal at 122, no further interventions were made, and a check at 7:00 AM showed the sodium level had dropped back to 122. The target sodium level for the next 24 hours is 128. The patient's magnesium levels were replenished with 2g of magnesium, increasing the level from 1.8 to 2.6. The highest CIWA score recorded overnight was 14, for which the patient received a 5 mg dose of Diazepam. At one point, the patient's blood pressure increased to 154/114, and 10 mg of Labetalol was administered. The nursing staff noted the patient appeared anxious, leading to an additional dose of 5 mg Diazepam. Started patient on Lisinopril 20mg PO QD for better control of blood pressure. The patient's urine output was 108 mL/hr, totaling 2600 mL over 24 hours. The patient also reported not using his CPAP machine overnight, despite regular use at home. Exam Vital Signs Temp Pulse Resp BP Pulse Ox O2 Del Method 96.5 F L 187 H 20 127/92 H 97 Room Air 07/01/25 08:00 07/01/25 10:07/01/25 10:07/01/25 10:07/01/25 10:07/01/25 08:00 Narrative Exam Physical Exam General: Awake and in no acute distress. Conversational and non-toxic appearing. Obese body habitus. Head: Normocephalic, atraumatic. Eyes: Pupils equally round and reactive to light. Anicteric. Mouth/Throat: Moist mucous membranes. Heart: Regular rate and rhythm, no murmurs. No JVD. Lungs: Clear to auscultation with no wheezing or crackles. Non-labored respirations, symmetric chest rise, no use of accessory muscles. Abdomen: Soft, nontender. No guarding or rebound tenderness. No spider angiomas, no caput medusae, no fluid shift. Soft epigastric mass on palpation. Neurologic: Alert and oriented x4, no gross neurological deficit, and patient able to move all 4 extremities. Extremities: No edema. Posterior tibial pulses are 2+ bilaterally. 2+ radial pulse bilaterally. No clubbing or cyanosis. No mottling. No hand tremors. 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 Skin: No rash. Bruising on right lateral lower leg. No jaundice. Objective Labs 07/01/25 05:00 07/01/25 12:22 Labs: Laboratory Results - last 24 hr 06/30/25 06/30/25 06/30/25 09:00 11:07 12:10 WBC RBC Hgb Hct MCV MCH MCHC RDW Std Deviation Plt Count Neut % (Auto) Lymph % (Auto) [place] % (Auto) Eos % (Auto) Baso % (Auto) Neut # (Auto) Lymph # (Auto) [place] # (Auto) Eos # (Auto) Baso # (Auto) Immature Gran # (Auto) Absolute Nucleated RBC Immature Gran % Nucleated RBC % PT INR APTT Sodium 118 L* 121 L Potassium Chloride Carbon Dioxide Anion Gap BUN Creatinine Estim Creat Clear Calc eGFR BUN/Creatinine Ratio Glucose Estimated Ave Glu mg/dL Hemoglobin A1c Calculated Osmolality Calcium Corrected Calcium Phosphorus Magnesium Total Bilirubin AST ALT Alkaline Phosphatase Total Protein Albumin Globulin Albumin/Globulin Ratio Triglycerides Cholesterol LDL Cholesterol, Calc HDL Cholesterol Cholesterol/HDL Ratio Ur Random Creatinine Cancelled Ur Random Sodium Cancelled Ur Random Potassium Cancelled Ur Random Chloride Cancelled Ur Random Urea Nitrogn Cancelled 06/30/25 06/30/25 06/30/25 13:10 14:00 15:04 WBC RBC Hgb Hct MCV MCH MCHC RDW Std Deviation Plt Count Neut % (Auto) Lymph % (Auto) [place] % (Auto) Eos % (Auto) Baso % (Auto) Neut # (Auto) Lymph # (Auto) [place] # (Auto) Eos # (Auto) Baso # (Auto) Immature Gran # (Auto) Absolute Nucleated RBC Immature Gran % Nucleated RBC % PT INR APTT Sodium 121 L 121 L 122 L Potassium Chloride Carbon Dioxide Anion Gap BUN Creatinine Estim Creat Clear Calc eGFR BUN/Creatinine Ratio Glucose Estimated Ave Glu mg/dL Hemoglobin A1c Calculated Osmolality Calcium Corrected Calcium Phosphorus Magnesium Total Bilirubin AST ALT Alkaline Phosphatase Total Protein Albumin Globulin Albumin/Globulin Ratio Triglycerides Cholesterol LDL Cholesterol, Calc HDL Cholesterol Cholesterol/HDL Ratio Ur Random Creatinine Ur Random Sodium Ur Random Potassium Ur Random Chloride Ur Random Urea Nitrogn 06/30/25 06/30/25 06/30/25 16:13 18:54 21:05 WBC RBC Hgb Hct MCV MCH MCHC RDW Std Deviation Plt Count Neut % (Auto) Lymph % (Auto) [place] % (Auto) Eos % (Auto) Baso % (Auto) Neut # (Auto) Lymph # (Auto) [place] # (Auto) Eos # (Auto) Baso # (Auto) Immature Gran # (Auto) Absolute Nucleated RBC Immature Gran % Nucleated RBC % PT INR APTT Sodium 123 L 123 L 122 L Potassium 3.9 D Chloride Carbon Dioxide Anion Gap BUN Creatinine Estim Creat Clear Calc eGFR BUN/Creatinine Ratio Glucose Estimated Ave Glu mg/dL Hemoglobin A1c Calculated Osmolality Calcium Corrected Calcium Phosphorus Magnesium Total Bilirubin AST ALT Alkaline Phosphatase Total Protein Albumin Globulin Albumin/Globulin Ratio Triglycerides Cholesterol LDL Cholesterol, Calc HDL Cholesterol Cholesterol/HDL Ratio Ur Random Creatinine Ur Random Sodium Ur Random Potassium Ur Random Chloride Ur Random Urea Nitrogn 06/30/25 07/01/25 07/01/25 22:50 00:31 02:17 WBC RBC Hgb Hct MCV MCH MCHC RDW Std Deviation Plt Count Neut % (Auto) Lymph % (Auto) [place] % (Auto) Eos % (Auto) Baso % (Auto) Neut # (Auto) Lymph # (Auto) [place] # (Auto) Eos # (Auto) Baso # (Auto) Immature Gran # (Auto) Absolute Nucleated RBC Immature Gran % Nucleated RBC % PT INR APTT Sodium 123 L 122 L 123 L Potassium Chloride Carbon Dioxide Anion Gap BUN Creatinine Estim Creat Clear Calc eGFR BUN/Creatinine Ratio Glucose Estimated Ave Glu mg/dL Hemoglobin A1c Calculated Osmolality Calcium Corrected Calcium Phosphorus Magnesium Total Bilirubin AST ALT Alkaline Phosphatase Total Protein Albumin Globulin Albumin/Globulin Ratio Triglycerides Cholesterol LDL Cholesterol, Calc HDL Cholesterol Cholesterol/HDL Ratio Ur Random Creatinine Ur Random Sodium Ur Random Potassium Ur Random Chloride Ur Random Urea Nitrogn 07/01/25 07/01/25 07/01/25 05:00 07:00 09:00 WBC 5.3 RBC 4.82 Hgb 15.0 Hct 42.6 MCV 88 MCH 31.1 MCHC 35.2 RDW Std Deviation 47.8 H Plt Count 126 L Neut % (Auto) 56 Lymph % (Auto) 20 [place] % (Auto) 20 H Eos % (Auto) 1 Baso % (Auto) 1 Neut # (Auto) 3.0 Lymph # (Auto) 1.1 [place] # (Auto) 1.1 H Eos # (Auto) 0.0 Baso # (Auto) 0.1 Immature Gran # (Auto) 0.08 H Absolute Nucleated RBC 0.00 Immature Gran % 2 H Nucleated RBC % 0 PT 10.9 INR 1.0 APTT 28.1 Sodium 124 L 122 L 124 L Potassium 3.3 L D Chloride 89 L Carbon Dioxide 24.9 Anion Gap 10 BUN 6 L Creatinine 0.6 Estim Creat Clear Calc 177.1 eGFR > 60 BUN/Creatinine Ratio 10 L Glucose [address] Glu mg/dL 103 Hemoglobin A1c 5.2 Calculated Osmolality 247 L Calcium 8.6 Corrected Calcium 8.6 Phosphorus 2.5 Magnesium 2.6 Total Bilirubin 0.9 D AST 66 H ALT 47 Alkaline Phosphatase 118 H Total Protein 6.7 Albumin 4.0 Globulin 2.7 Albumin/Globulin Ratio 1.5 Triglycerides 64 Cholesterol 161 LDL Cholesterol, Calc 77 HDL Cholesterol 71 H Cholesterol/HDL Ratio 2.3 L Ur Random Creatinine Ur Random Sodium Ur Random Potassium Ur Random Chloride Ur Random Urea Nitrogn ABG Interpretation ABG results: 06/30/25 09:47 VBG pH 7.52 VBG pCO2 27 L VBG pO2 73 H VBG Base Excess 1 Quality Measures Quality Measures none Assessment & Plan Assessment Current Active Medications: Generic Name Dose Route Start Last Admin Trade Name Freq PRN Reason Stop Dose Admin Diazepam 2.5 mg 06/30/25 11:46 Diazepam Inj 5 Mg/Ml Vial 2 Ml IVP 07/05/25 11:45 Q2HR PRN CIWA SCORE 8-13 Diazepam 5 mg 06/30/25 11:46 07/01/25 05:15 Diazepam Inj 5 Mg/Ml Vial 2 Ml IVP 07/05/25 11:45 5 mg Q2HR PRN Administration CIWA SCORE 14-19 Diazepam 10 mg 06/30/25 11:46 Diazepam Inj 5 Mg/Ml Vial 2 Ml IVP 07/05/25 11:45 Q2HR PRN CIWA SCORE 20-25 Enoxaparin Sodium 40 mg 06/30/25 11:00 07/01/25 08:52 Enoxaparin Sod Inj 40 Mg/0.4 Ml Syringe SC 07/14/25 10:59 40 mg QDAY NATHAN Administration Folic Acid 1 mg 06/30/25 12:15 07/01/25 08:53 Folic Acid 1 Mg Tablet PO 07/30/25 12:14 1 mg QDAY NATHAN Administration Labetalol HCl 10 mg 06/30/25 15:38 07/01/25 05:16 Labetalol Inj 5 Mg/Ml Vial 20 Ml IVP 07/07/25 00:00 10 mg Q10M PRN Administration SBP > 180 or DBP > 110 Lisinopril 20 mg 07/01/25 09:15 07/01/25 09:36 Lisinopril 20 Mg Tablet PO 07/31/25 09:14 20 mg QDAY NATHAN Administration Ondansetron HCl 4 mg 06/30/25 10:47 Ondansetron Inj 2 Mg/Ml Inj 2 Ml IVP 07/30/25 10:46 Q6H PRN NAUSEA OR VOMITING Protocol Pantoprazole Sodium 40 mg 07/01/25 09:00 07/01/25 08:54 Pantoprazole 40 Mg Tablet PO 07/31/25 08:59 40 mg QDAY NATHAN Administration Potassium Chloride 40 meq 07/01/25 13:00 Potassium Chloride 20 Meq Tabcr PO 07/01/25 13:01 X1 ONE Thiamine HCl 100 mg 07/01/25 09:00 07/01/25 08:54 Thiamine 100 Mg Tablet PO 07/31/25 08:59 100 mg QDAY NATHAN Administration Plan A 50-year-old male with past medical history significant for GERD, obstructive sleep apnea and alcohol use disorder presents with confusion and abnormal gait, admitted to ICU for severe symptomatic hyponatremia and alcohol withdrawal. NEURO #Alcohol withdrawal #Alcohol use disorder Patient experiencing confusion, visual and auditory hallucination and mild hand tremors. These symptoms, along with history of heavy alcohol use and recent cessation, raise concern for withdrawal-related complications. DDx: metabolic derangement vs wernicke's encephalopathy vs stroke/TIA. Dx: - CIWA 13 on ICU admission, indicating moderate alcohol withdrawal. Rx: - Continue CIWA protocol to titrate Diazepam as needed for symptom control. - Continue thiamine 100mg PO daily to prevent and treat Wernicke's encephalopathy. - Continue folic acid 1mg PO daily. - Monitor for seizures and delirium tremens. - Neuro check Q4HR. CARDIO #Hypertensive urgency (resolved) #Hypertension Likely in setting of alcohol withdrawal. Per patient, no history of hypertension. Dx: - Blood pressure on admission was 176/116. - Labetalol 10 mg x1 for BP of 154/113 and Labetalol 10mg x1 for BP of 154/114. Rx: - Labetalol 10mg Q10M PRN for SBP >180 or DBP> 110. Hold for HR < 70. - Continue [facility] protocol for alcohol withdrawal symptoms. - Start Lisinopril 20mg PO QD for better control of blood pressure. - Follow up outpatient for further blood pressure management. PULM #Obstructive sleep apnea Patient uses CPAP at night at home. Rx: - Patient brought in personal CPAP machine; functionality verified by hospital engineering. - Patient is familiar with device and able to use it independently. GI #GERD Rx: - IV Protonix 40 mg QD. #Alcohol hepatitis (improving) #Transaminits (improving) Supsected alcohol-related liver injury based on clinical history and transaminitis pattern. Dx: - Admission AST 100. - Liver ultrasound: Negative for gallstones. Borderline thickening gallbladder wall. Moderate hepatomegaly. Rx: - Continue to monitor CMP and LFTs. - Continue thiamine 100mg PO daily and folic acid 1 mg PO daily. #Hiatal Hernia Dx: - Documented on EGD report in 02/2023. Rx: - Continue GERD management as above. NEPHRO #Severe hyponatremia (improving) #Hypokalemia #Hypochloremia DDx: - Beer potomania: most likely given heavy alcohol use and poor nutritional intake. - Adrenal insufficiency: less likely given hypokalemia. - GI losses via diarrhea: possible contributor. - Intracranial patholgoy (trauma, stroke): unlikely given normal head CT and no history of trauma or focal deficits. Dx: - Admission sodium 116, potassium 3.0, chloride 82, magnesium 1.8. - Urine electrolytes - pending. - Head CT negative for acute hemorrhage, mass effect or midline shift. Rx: - Hypertonic saline started in ED since patient had mental confusion. Discontinued upon ICU admission when mental status returned to baseline. - Continue fluid restriction of 1000 mL/day. - Strict I&Qs. - Sodium checks Q4HR. - Sodium goal of 122 mmol/L for first 24 hours (06/30 7AM - 07/01 7AM). - Sodium goal of 128 mmol/L for next 24 hours (07/01 7AM - 07/02 7AM). - Avoid over-corrections of 8 or more mEq/L in 24 hours to avoid osmotic demyeliation syndrome. - Replete potassium as needed. HEME #Thrombocytopenia Likely secondary to chronic alcohol abuse, as ethanol is toxic to megakaryocyte precursors in the bone marrow, leading to impaired platelet production. Dx: - Admission Plt 105. - Plt on 07/01: 126. Rx: - Monitor CBC daily to track platelet trend. - Continue to monitor for signs of bleeding, including petechiae, bruising, or mucosal bleeding. - manager of allied health services for resources for rehab. - Levenox 40mg SQ QD for DVT prophylaxis. ENDO #No active problems ID #No active problems Health Maintenance DVT prophylaxis: Lovenox GI prophylaxis: None. IV protonix for GERD. Diet: Regular diet with fluid restriction 1L. Garrett: none Lines: Peripheral IV, Central IV Antibiotics: none CODE STATUS: FULL Patient plan of care was discussed with my senior resident and attending Dr. Hernandez. Trey Oliver, Internal Medicine, PGY-1
[2025-07-01] MEDS: LIDOCAINE 5% 1 PATCH TOP (11:16)
--- NOTE | 2025-07-01 11:17 | PD.INTPROG ---
Documentation for date of: 07/01/25 Subjective Subjective Interval history: This is a 50-year-old male who presents to the ER for confusion. Patient's significant other notes that he has been drinking 30+ beers a day for the last 6 to 8 weeks. He was starting to wean himself down 2 days ago and only drank approximately 12. He had none on Friday or Friday because his partner refused to buy him anymore. Yesterday and this morning he was noted to be somewhat confused and had memory difficulties. He also had an abnormal gait and stated he was walking as if he were drunk even though he had not had any alcohol. Given these concerns his partner brought him to the ER. States that he has gone through withdrawal in the past and has had the shakes before. Denies ever having any seizures related to alcohol withdrawal. He denies any chest pain, shortness of breath, cough, fevers, chills or abdominal pain. Does note that he has had significant diarrhea for the last several days. 07/01- no acute overnight events, doing well this AM, no hallucinations, good UOP, afebrile Critical Care Note Critical care time (min.): 0 Exam Vital Signs Temp Pulse Resp BP Pulse Ox O2 Del Method 96.5 F L 187 H 20 127/92 H 97 Room Air 07/01/25 08:00 07/01/25 10:00 07/01/25 10:00 07/01/25 10:00 07/01/25 10:07/01/25 08:00 Narrative Exam Gen- NAD, AAOx4, obese HEENT- NC/AT, mucosa hydrated, sclera anicteric, EOMI Chest- LCTAB, HRRR Abd- obese, s/nt/bs+ Ext- no edema, pulses palp, no clubbing, no mottling, moves all 4 Physical Exam Completion Physical Exam Complete?: Yes Objective - Visual Merchandising Specialist Labs 07/01/25 05:00 07/01/25 09:00 Labs: Laboratory Results - last 24 hr 06/30/25 06/30/25 06/30/25 09:00 11:07 12:10 WBC RBC Hgb Hct MCV MCH MCHC RDW Std Deviation Plt Count Neut % (Auto) Lymph % (Auto) [place] % (Auto) Eos % (Auto) Baso % (Auto) Neut # (Auto) Lymph # (Auto) [place] # (Auto) Eos # (Auto) Baso # (Auto) Immature Gran # (Auto) Absolute Nucleated RBC Immature Gran % Nucleated RBC % PT INR APTT Sodium 118 L* 121 L Potassium Chloride Carbon Dioxide Anion Gap BUN Creatinine Estim Creat Clear Calc eGFR BUN/Creatinine Ratio Glucose Estimated Ave Glu mg/dL Hemoglobin A1c Calculated Osmolality Calcium Corrected Calcium Phosphorus Magnesium Total Bilirubin AST ALT Alkaline Phosphatase Total Protein Albumin Globulin Albumin/Globulin Ratio Triglycerides Cholesterol LDL Cholesterol, Calc HDL Cholesterol Cholesterol/HDL Ratio Ur Random Creatinine Cancelled Ur Random Sodium Cancelled Ur Random Potassium Cancelled Ur Random Chloride Cancelled Ur Random Urea Nitrogn Cancelled 06/30/25 06/30/25 06/30/25 13:10 14:00 15:04 WBC RBC Hgb Hct MCV MCH MCHC RDW Std Deviation Plt Count Neut % (Auto) Lymph % (Auto) [place] % (Auto) Eos % (Auto) Baso % (Auto) Neut # (Auto) Lymph # (Auto) [place] # (Auto) Eos # (Auto) Baso # (Auto) Immature Gran # (Auto) Absolute Nucleated RBC Immature Gran % Nucleated RBC % PT INR APTT Sodium 121 L 121 L 122 L Potassium Chloride Carbon Dioxide Anion Gap BUN Creatinine Estim Creat Clear Calc eGFR BUN/Creatinine Ratio Glucose Estimated Ave Glu mg/dL Hemoglobin A1c Calculated Osmolality Calcium Corrected Calcium Phosphorus Magnesium Total Bilirubin AST ALT Alkaline Phosphatase Total Protein Albumin Globulin Albumin/Globulin Ratio Triglycerides Cholesterol LDL Cholesterol, Calc HDL Cholesterol Cholesterol/HDL Ratio Ur Random Creatinine Ur Random Sodium Ur Random Potassium Ur Random Chloride Ur Random Urea Nitrogn 06/30/25 06/30/25 06/30/25 16:13 18:54 21:05 WBC RBC Hgb Hct MCV MCH MCHC RDW Std Deviation Plt Count Neut % (Auto) Lymph % (Auto) [place] % (Auto) Eos % (Auto) Baso % (Auto) Neut # (Auto) Lymph # (Auto) [place] # (Auto) Eos # (Auto) Baso # (Auto) Immature Gran # (Auto) Absolute Nucleated RBC Immature Gran % Nucleated RBC % PT INR APTT Sodium 123 L 123 L 122 L Potassium 3.9 D Chloride Carbon Dioxide Anion Gap BUN Creatinine Estim Creat Clear Calc eGFR BUN/Creatinine Ratio Glucose Estimated Ave Glu mg/dL Hemoglobin A1c Calculated Osmolality Calcium Corrected Calcium Phosphorus Magnesium Total Bilirubin AST ALT Alkaline Phosphatase Total Protein Albumin Globulin Albumin/Globulin Ratio Triglycerides Cholesterol LDL Cholesterol, Calc HDL Cholesterol Cholesterol/HDL Ratio Ur Random Creatinine Ur Random Sodium Ur Random Potassium Ur Random Chloride Ur Random Urea Nitrogn 06/30/25 07/01/25 07/01/25 22:50 00:31 02:17 WBC RBC Hgb Hct MCV MCH MCHC RDW Std Deviation Plt Count Neut % (Auto) Lymph % (Auto) [place] % (Auto) Eos % (Auto) Baso % (Auto) Neut # (Auto) Lymph # (Auto) [place] # (Auto) Eos # (Auto) Baso # (Auto) Immature Gran # (Auto) Absolute Nucleated RBC Immature Gran % Nucleated RBC % PT INR APTT Sodium 123 L 122 L 123 L Potassium Chloride Carbon Dioxide Anion Gap BUN Creatinine Estim Creat Clear Calc eGFR BUN/Creatinine Ratio Glucose Estimated Ave Glu mg/dL Hemoglobin A1c Calculated Osmolality Calcium Corrected Calcium Phosphorus Magnesium Total Bilirubin AST ALT Alkaline Phosphatase Total Protein Albumin Globulin Albumin/Globulin Ratio Triglycerides Cholesterol LDL Cholesterol, Calc HDL Cholesterol Cholesterol/HDL Ratio Ur Random Creatinine Ur Random Sodium Ur Random Potassium Ur Random Chloride Ur Random Urea Nitrogn 07/01/25 07/01/25 07/01/25 05:00 07:00 09:00 WBC 5.3 RBC 4.82 Hgb 15.0 Hct 42.6 MCV 88 MCH 31.1 MCHC 35.2 RDW Std Deviation 47.8 H Plt Count 126 L Neut % (Auto) 56 Lymph % (Auto) 20 [place] % (Auto) 20 H Eos % (Auto) 1 Baso % (Auto) 1 Neut # (Auto) 3.0 Lymph # (Auto) 1.1 [place] # (Auto) 1.1 H Eos # (Auto) 0.0 Baso # (Auto) 0.1 Immature Gran # (Auto) 0.08 H Absolute Nucleated RBC 0.00 Immature Gran % 2 H Nucleated RBC % 0 PT 10.9 INR 1.0 APTT 28.1 Sodium 124 L 122 L 124 L Potassium 3.3 L D Chloride 89 L Carbon Dioxide 24.9 Anion Gap 10 BUN 6 L Creatinine 0.6 Estim Creat Clear Calc 177.1 eGFR > 60 BUN/Creatinine Ratio 10 L Glucose [address] Glu mg/dL 103 Hemoglobin A1c 5.2 Calculated Osmolality 247 L Calcium 8.6 Corrected Calcium 8.6 Phosphorus 2.5 Magnesium 2.6 Total Bilirubin 0.9 D AST 66 H ALT 47 Alkaline Phosphatase 118 H Total Protein 6.7 Albumin 4.0 Globulin 2.7 Albumin/Globulin Ratio 1.5 Triglycerides 64 Cholesterol 161 LDL Cholesterol, Calc 77 HDL Cholesterol 71 H Cholesterol/HDL Ratio 2.3 L Ur Random Creatinine Ur Random Sodium Ur Random Potassium Ur Random Chloride Ur Random Urea Nitrogn Assessment & Plan Additional Assessment Additional Assessment: In brief this is a 50-year-old male being admitted to the ICU for severe symptomatic hyponatremia on hypertonic saline a/p GLUER AND WEDGER ETOH withdrawal- start on CIWA, give thiamine and folate - states he feels improved - SW for rehab CV HTN urgency- in the setting of withdrawal, prn labetalol and tx withdrawal - started on ACEI today Resp stable Renal HypoNa- 2/2 beer potomania, anticipate that will self correct with fluid restrict. given sxs of mental confusion it is reasonable to start HTS however once Na is 120 would stop. - off HTS yesterday evening - required some hours of D5w to slow correction - doing well HypoK- replete PO - give additional PO K today GI ETOH hepatitis- AST elevated, will fu on AM labs - US shows fatty infiltrate - #s trending down Endo stable Heme Thrombocytopenia- 2/2 ETOH abuse - no active bleeding - improving DVT proph- lovenox ID stable case d/w ICU team stable for downgrade labs, imaging, records reviewed ~38min required for eval, exam, review, intervention, discussion and formulation of POC Provider Notation Provider Notation: Although this document has been carefully reviewed, there may still be some phonetic and other typographical errors. These errors are purely grammatical due to imperfections in the software program and should not be construed in any way to compromise the substance of the patient's medical care during this visit. Thank you for the opportunity and privilege in assisting you with this patient's care and management.
[2025-07-01] MEDS: ACETAMINOPHEN 325 MG TABLET PO (11:27)
--- NOTE | 2025-07-01 11:45 | ESPR_ITS ---
Documentation for date of: 07/01/25 Patient is a 50-year-old male with a past medical history of alcohol use disorder, history of GERD, history of obstructive sleep apnea who presented to the emergency room on 06/30/2025 with acute metabolic encephalopathy likely secondary to alcohol use disorders and hyponatremia was noted on patient's labs. Given concern for neurological symptoms likely secondary to hyponaremia, patient was admitted directly to the ICU and was started on hypertonic saline. Initial sodium level 116 and glucose level of 123, upon down grade Na 122 out of the 24 hour window. Continue regular diet and monitor Na levels. Currenlty Na 127. Current Sodium deficiet of 426.1 mmols. Continue Fluid restrictions. Concern for Beer Potomania given excessive use of alcohol and poor oral intake. Continue CIWA for Alcohol Withdraw/Substance Use Disorder, last CIWA score of 11. Continue Diazepam IVP with CIWA scoring. - The patient's plan was discussed with attending Dr. Yuni Dallas MD PGY2 Internal Medicine Subjective Subjective Interval history: (below account for overnight events taken from 07/01/25 ICU Progress Note) Overnight, the patient's sodium levels were monitored every two hours. Initially, the sodium level decreased to 122 while the patient was on D5W, prompting the discontinuation of the solution. At 2:17 AM, the sodium level increased slightly to 123, at which point D5W was reinitiated at a rate of 25 mL/hr for one hour. By 5:00 AM, the sodium level had risen to 124. As the patient approached the 24-hour althea with sodium goal at 122, no further interventions were made, and a check at 7:00 AM showed the sodium level had dropped back to 122. The target sodium level for the next 24 hours is 128. The patient's magnesium levels were replenished with 2g of magnesium, increasing the level from 1.8 to 2.6. The highest CIWA score recorded overnight was 14, for which the patient received a 5 mg dose of Diazepam. At one point, the patient's blood pressure increased to 154/114, and 10 mg of Labetalol was administered. The nursing staff noted the patient appeared anxious, leading to an additional dose of 5 mg Diazepam. Started patient on Lisinopril 20mg PO QD for better control of blood pressure. The patient's urine output was 108 mL/hr, totaling 2600 mL over 24 hours. The patient also reported not using his CPAP machine overnight, despite regular use at home. (Interval History by this law writer) Patient was examined at bedside; he does not appear tremulous and is lying comfortably in bed. Labs today significant for platelet count 126, sodium 122, potassium 3.3, chloride 89, AST 100 -> 66, ALT 47, and alkaline phosphatase 133 -> 118. Physical exam today was unremarkable. Current plan is to continue fluid restriction of 1000 mL per day and continue monitoring sodium q4HRs as patient's hyponatremia is slowly corrected back WNL. Exam Vital Signs Temp Pulse Resp BP Pulse Ox O2 Del Method 96.5 F L 187 H 20 127/92 H 97 Room Air 07/01/25 08:00 07/01/25 10:00 07/01/25 10:00 07/01/25 10:07/01/25 10:07/01/25 08:00 Narrative Exam General: Awake and in no acute distress. Conversational and non-toxic appearing. Obese body habitus. Head: Normocephalic, atraumatic. Eyes: Pupils equally round and reactive to light. Anicteric. Mouth/Throat: Moist mucous membranes. Heart: Regular rate and rhythm, no murmurs. No JVD. Lungs: Clear to auscultation with no wheezing or crackles. Non-labored respirations, symmetric chest rise, no use of accessory muscles. Abdomen: Soft, nontender. No guarding or rebound tenderness. No spider angiomas, no caput medusae, no fluid shift. Soft epigastric mass on palpation. Neurologic: Alert and oriented x4, no gross neurological deficit, and patient able to move all 4 extremities. Extremities: No edema. Posterior tibial pulses are 2+ bilaterally. 2+ radial pulse bilaterally. No clubbing or cyanosis. No mottling. No hand tremors. 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 Skin: No rash. Bruising on right lateral lower leg. No jaundice. Objective Labs 07/01/25 05:00 07/01/25 12:22 Labs: Laboratory Results - last 24 hr 06/30/25 06/30/25 06/30/25 09:00 12:10 13:10 WBC RBC Hgb Hct MCV MCH MCHC RDW Std Deviation Plt Count Neut % (Auto) Lymph % (Auto) [place] % (Auto) Eos % (Auto) Baso % (Auto) Neut # (Auto) Lymph # (Auto) [place] # (Auto) Eos # (Auto) Baso # (Auto) Immature Gran # (Auto) Absolute Nucleated RBC Immature Gran % Nucleated RBC % PT INR APTT Sodium 121 L 121 L Potassium Chloride Carbon Dioxide Anion Gap BUN Creatinine Estim Creat Clear Calc eGFR BUN/Creatinine Ratio Glucose Estimated Ave Glu mg/dL Hemoglobin A1c Calculated Osmolality Calcium Corrected Calcium Phosphorus Magnesium Total Bilirubin AST ALT Alkaline Phosphatase Total Protein Albumin Globulin Albumin/Globulin Ratio Triglycerides Cholesterol LDL Cholesterol, Calc HDL Cholesterol Cholesterol/HDL Ratio Ur Random Creatinine Cancelled Ur Random Sodium Cancelled Ur Random Potassium Cancelled Ur Random Chloride Cancelled Ur Random Urea Nitrogn Cancelled 06/30/25 06/30/25 06/30/25 14:00 15:04 16:13 WBC RBC Hgb Hct MCV MCH MCHC RDW Std Deviation Plt Count Neut % (Auto) Lymph % (Auto) [place] % (Auto) Eos % (Auto) Baso % (Auto) Neut # (Auto) Lymph # (Auto) [place] # (Auto) Eos # (Auto) Baso # (Auto) Immature Gran # (Auto) Absolute Nucleated RBC Immature Gran % Nucleated RBC % PT INR APTT Sodium 121 L 122 L 123 L Potassium Chloride Carbon Dioxide Anion Gap BUN Creatinine Estim Creat Clear Calc eGFR BUN/Creatinine Ratio Glucose Estimated Ave Glu mg/dL Hemoglobin A1c Calculated Osmolality Calcium Corrected Calcium Phosphorus Magnesium Total Bilirubin AST ALT Alkaline Phosphatase Total Protein Albumin Globulin Albumin/Globulin Ratio Triglycerides Cholesterol LDL Cholesterol, Calc HDL Cholesterol Cholesterol/HDL Ratio Ur Random Creatinine Ur Random Sodium Ur Random Potassium Ur Random Chloride Ur Random Urea Nitrogn 06/30/25 06/30/25 06/30/25 18:54 21:05 22:50 WBC RBC Hgb Hct MCV MCH MCHC RDW Std Deviation Plt Count Neut % (Auto) Lymph % (Auto) [place] % (Auto) Eos % (Auto) Baso % (Auto) Neut # (Auto) Lymph # (Auto) [place] # (Auto) Eos # (Auto) Baso # (Auto) Immature Gran # (Auto) Absolute Nucleated RBC Immature Gran % Nucleated RBC % PT INR APTT Sodium 123 L 122 L 123 L Potassium 3.9 D Chloride Carbon Dioxide Anion Gap BUN Creatinine Estim Creat Clear Calc eGFR BUN/Creatinine Ratio Glucose Estimated Ave Glu mg/dL Hemoglobin A1c Calculated Osmolality Calcium Corrected Calcium Phosphorus Magnesium Total Bilirubin AST ALT Alkaline Phosphatase Total Protein Albumin Globulin Albumin/Globulin Ratio Triglycerides Cholesterol LDL Cholesterol, Calc HDL Cholesterol Cholesterol/HDL Ratio Ur Random Creatinine Ur Random Sodium Ur Random Potassium Ur Random Chloride Ur Random Urea Nitrogn 07/01/25 07/01/25 07/01/25 00:31 02:17 05:00 WBC 5.3 RBC 4.82 Hgb 15.0 Hct 42.6 MCV 88 MCH 31.1 MCHC 35.2 RDW Std Deviation 47.8 H Plt Count 126 L Neut % (Auto) 56 Lymph % (Auto) 20 [place] % (Auto) 20 H Eos % (Auto) 1 Baso % (Auto) 1 Neut # (Auto) 3.0 Lymph # (Auto) 1.1 [place] # (Auto) 1.1 H Eos # (Auto) 0.0 Baso # (Auto) 0.1 Immature Gran # (Auto) 0.08 H Absolute Nucleated RBC 0.00 Immature Gran % 2 H Nucleated RBC % 0 PT 10.9 INR 1.0 APTT 28.1 Sodium 122 L 123 L 124 L Potassium 3.3 L D Chloride 89 L Carbon Dioxide 24.9 Anion Gap 10 BUN 6 L Creatinine 0.6 Estim Creat Clear Calc 177.1 eGFR > 60 BUN/Creatinine Ratio 10 L Glucose [address] Glu mg/dL 103 Hemoglobin A1c 5.2 Calculated Osmolality 247 L Calcium 8.6 Corrected Calcium 8.6 Phosphorus 2.5 Magnesium 2.6 Total Bilirubin 0.9 D AST 66 H ALT 47 Alkaline Phosphatase 118 H Total Protein 6.7 Albumin 4.0 Globulin 2.7 Albumin/Globulin Ratio 1.5 Triglycerides 64 Cholesterol 161 LDL Cholesterol, Calc 77 HDL Cholesterol 71 H Cholesterol/HDL Ratio 2.3 L Ur Random Creatinine Ur Random Sodium Ur Random Potassium Ur Random Chloride Ur Random Urea Nitrogn 07/01/25 07/01/25 07:00 09:00 WBC RBC Hgb Hct MCV MCH MCHC RDW Std Deviation Plt Count Neut % (Auto) Lymph % (Auto) [place] % (Auto) Eos % (Auto) Baso % (Auto) Neut # (Auto) Lymph # (Auto) [place] # (Auto) Eos # (Auto) Baso # (Auto) Immature Gran # (Auto) Absolute Nucleated RBC Immature Gran % Nucleated RBC % PT INR APTT Sodium 122 L 124 L Potassium Chloride Carbon Dioxide Anion Gap BUN Creatinine Estim Creat Clear Calc eGFR BUN/Creatinine Ratio Glucose Estimated Ave Glu mg/dL Hemoglobin A1c Calculated Osmolality Calcium Corrected Calcium Phosphorus Magnesium Total Bilirubin AST ALT Alkaline Phosphatase Total Protein Albumin Globulin Albumin/Globulin Ratio Triglycerides Cholesterol LDL Cholesterol, Calc HDL Cholesterol Cholesterol/HDL Ratio Ur Random Creatinine Ur Random Sodium Ur Random Potassium Ur Random Chloride Ur Random Urea Nitrogn ABG Interpretation ABG results: 06/30/25 09:47 VBG pH 7.52 VBG pCO2 27 L VBG pO2 73 H VBG Base Excess 1 Quality Measures Quality Measures none Assessment & Plan Assessment Current Active Medications: Generic Name Dose Route Start Last Admin Trade Name Freq PRN Reason Stop Dose Admin Diazepam 2.5 mg 06/30/25 11:46 Diazepam Inj 5 Mg/Ml Vial 2 Ml IVP 07/05/25 11:45 Q2HR PRN CIWA SCORE 8-13 Diazepam 5 mg 06/30/25 11:46 07/01/25 05:15 Diazepam Inj 5 Mg/Ml Vial 2 Ml IVP 07/05/25 11:45 5 mg Q2HR PRN Administration CIWA SCORE 14-19 Diazepam 10 mg 06/30/25 11:46 Diazepam Inj 5 Mg/Ml Vial 2 Ml IVP 07/05/25 11:45 Q2HR PRN CIWA SCORE 20-25 Enoxaparin Sodium 40 mg 06/30/25 11:00 07/01/25 08:52 Enoxaparin Sod Inj 40 Mg/0.4 Ml Syringe SC 07/14/25 10:59 40 mg QDAY NATHAN Administration Folic Acid 1 mg 06/30/25 12:15 07/01/25 08:53 Folic Acid 1 Mg Tablet PO 07/30/25 12:14 1 mg QDAY NATHAN Administration Labetalol HCl 10 mg 06/30/25 15:38 07/01/25 05:16 Labetalol Inj 5 Mg/Ml Vial 20 Ml IVP 07/07/25 00:00 10 mg Q10M PRN Administration SBP > 180 or DBP > 110 Lisinopril 20 mg 07/01/25 09:15 07/01/25 09:36 Lisinopril 20 Mg Tablet PO 07/31/25 09:14 20 mg QDAY NATHAN Administration Ondansetron HCl 4 mg 06/30/25 10:47 Ondansetron Inj 2 Mg/Ml Inj 2 Ml IVP 07/30/25 10:46 Q6H PRN NAUSEA OR VOMITING Protocol Pantoprazole Sodium 40 mg 07/01/25 09:00 07/01/25 08:54 Pantoprazole 40 Mg Tablet PO 07/31/25 08:59 40 mg QDAY NATHAN Administration Potassium Chloride 40 meq 07/01/25 13:00 Potassium Chloride 20 Meq Tabcr PO 07/01/25 13:01 X1 ONE Thiamine HCl 100 mg 07/01/25 09:00 07/01/25 08:54 Thiamine 100 Mg Tablet PO 07/31/25 08:59 100 mg QDAY NATHAN Administration Plan A 50-year-old male with past medical history significant for GERD, obstructive sleep apnea and alcohol use disorder presents with confusion and abnormal gait, admitted to ICU for severe symptomatic hyponatremia and alcohol withdrawal. #Severe hyponatremia, improving #Hypokalemia #Hypochloremia DDx: - Beer potomania: most likely given heavy alcohol use and poor nutritional intake. - Adrenal insufficiency: less likely given hypokalemia. - GI losses via diarrhea: possible contributor. - Intracranial pathology (trauma, stroke): unlikely given normal head CT and no history of trauma or focal deficits. Dx: - Admission sodium 116, potassium 3.0, chloride 82, magnesium 1.8. . - Head CT negative for acute hemorrhage, mass effect or midline shift. Rx: - Hypertonic saline started in ED since patient had mental confusion. Discontinued upon ICU admission when mental status returned to baseline. - Continue fluid restriction of 1000 mL/day. - Strict I&Qs. - Sodium checks Q4HR. - Sodium goal of 122 mmol/L for first 24 hours (06/30 7AM - 07/01 7AM). - Sodium goal of 128 mmol/L for next 24 hours (07/01 7AM - 07/02 7AM). - Avoid over-corrections of 8 or more mEq/L in 24 hours to avoid osmotic demyeliation syndrome. - Replete potassium as needed. #Alcohol withdrawal #Alcohol use disorder #CIWA Protocal Patient presented on 06/30 with confusion, visual and auditory hallucination and mild hand tremors. These symptoms, along with history of heavy alcohol use and recent cessation, raise concern for withdrawal-related complications. Dx: -Most recent CIWA on 07/01 @ 14:04 was 10 Rx: - Continue CIWA protocol to titrate diazepam as needed for symptom control. - Continue thiamine 100mg PO daily to prevent and treat Wernicke's encephalopathy. - Continue folic acid 1mg PO daily. - Monitor for seizures and delirium tremens. - Neuro check Q4HR. #Hypertension Likely in setting of alcohol withdrawal. Per patient, no history of hypertension. Blood pressure on admission was 176/116. Rx: - Labetalol 10mg Q10M PRN for SBP >180 or DBP> 110. Hold for HR < 70. - Continue CIWA protocol for alcohol withdrawal symptoms. - Start Lisinopril 20mg PO QD for better control of blood pressure. - Follow up outpatient for further blood pressure management. #Thrombocytopenia Likely secondary to chronic alcohol abuse, as ethanol is toxic to megakaryocyte precursors in the bone marrow, leading to impaired platelet production. Dx: - Admission Plt 105 - Plt on 103: 126. Rx: - Monitor CBC daily to track platelet trend. - Continue to monitor for signs of bleeding, including petechiae, bruising, or mucosal bleeding. - corporate services manager for resources for rehab. - Lovenox 40mg SQ QD for DVT prophylaxis. #Obstructive sleep apnea Patient uses CPAP at night at home. Rx: - Patient brought in personal CPAP machine; functionality verified by hospital engineering. - Patient is familiar with device and able to use it independently. #GERD Rx: - IV Protonix 40 mg QD. #Alcohol hepatitis (improving) #Transaminits (improving) Supsected alcohol-related liver injury based on clinical history and transaminitis pattern. Dx: - Admission AST 100, now 66 - Liver ultrasound: Negative for gallstones. Borderline thickening gallbladder wall. Moderate hepatomegaly. Rx: - Continue to monitor CMP and LFTs. - Continue thiamine 100mg PO daily and folic acid 1 mg PO daily. #Hiatal Hernia Dx: - Documented on EGD report in 02/2023. Rx: - Continue GERD management as above. Health Maintenance DVT prophylaxis: Lovenox GI prophylaxis: IV protonix for GERD. Diet: Regular diet with fluid restriction 1L. [place]: none Lines: Peripheral IV Antibiotics: none CODE STATUS: FULL Patient plan of care was discussed with my senior resident Dr. Dallas and attending Dr. Morrissey. Mamadou Araujo, DO Internal Medicine, PGY-1 Attending Provider Attestation/Addendum I have discussed and was present for the essential components of the history, physical examination, diagnosis, and treatment plan with the resident. I agree with the patient's care as documented by the resident and amended herein by me. Hi Morrissey DO. Although this document has been carefully reviewed, there may still be some phonetic and other typographical errors. These errors are purely grammatical due to imperfections in the software program and should not be construed in any way to compromise the substance of the patient's medical care during this visit.
[2025-07-01 12:57] LABS: Sodium 125 mMol/L (136-145)
[2025-07-01] MEDS: DIAZEPAM INJ 5 MG/ML VIAL 2 ML 2.5 MG IVP ×2 (14:13→17:11)
--- NOTE | 2025-07-01 14:47 | PC.SS ---
ZIPPER TRIMMER conducted bedside contact with the patient conduct initial assessment and to discuss discharge planning.? Patient confirmed demographic information.? Patient resides alone at home. ?Patient is currently employed.? Patient does not utilize any form of DME to assist with ambulation.? Patient does not utilize home oxygen.? Patient describes the ability to complete ADL?s independently.? Patient identified mother, Lydia Quintanilla ; as medical surrogate decision maker.? Patient?s PCP is Dr. Miles.? Patient does not participate with dialysis.? Patient does not possess any specialty providers.? ZIPPER TRIMMER provided patient with community resources to address alcohol dependency.? Patient reports plna to discontinue alcohol use.? Plan is for the patient to return home at the time of discharge.? Family will provide transportation on behalf of the patient.? No further discharge needs identified by the patient.? No further intervention required at this time, criminal justice social worker will be available to address any further concerns.? Next of Kin: Lydia Socorro D/C Plan: Home
[2025-07-01 16:56] LABS: Sodium 127 mMol/L (136-145)
[2025-07-01] MEDS: DIAZEPAM INJ 5 MG/ML VIAL 2 ML 10 MG IVP (19:39)
[2025-07-01 21:06] LABS: Sodium 127 mMol/L (136-145)
[2025-07-02] VITALS: BP 128/100; PULSE 100; RESP 18; TEMP 36.6; O2SAT 97
[2025-07-02] MEDS: DIAZEPAM INJ 5 MG/ML VIAL 2 ML 10 MG IVP ×3 (00:25→08:47)
[2025-07-02 02:05] LABS: Sodium 129 mMol/L (136-145)
[2025-07-02 04:00] VITALS: BP 125/96; PULSE 99; RESP 18; TEMP 35.8; O2SAT 95
[2025-07-02 05:20] VITALS: BMI 38.3
[2025-07-02 05:47] LABS: Basophils # (Auto) 0.1 Thou/mm3 (0.0-0.2); Basophils % (Auto) 1 % (0-2.5); Eosinophils # (Auto) 0.1 Thou/mm3 (0.0-0.5); Eosinophils % (Auto) 1 % (0-10); Hematocrit 45.4 % (41.0-53.0); Hemoglobin 15.6 g/dL (13.5-16.0); Immature Granulocytes Auto 0.15 Thou/mm3 (0.00-0.00); Lymphocytes # (Auto) 1.4 Thou/mm3 (1.0-4.8); Lymphocytes % (Auto) 24 % (10-50); Mean Corpuscular HGB Conc 34.4 g/dl (31.0-37.0); Mean Corpuscular Hemoglobin 31.2 pg (25.0-35.0); Mean Corpuscular Volume 91 fL (80-100); Monocytes # (Auto) 1.3 Thou/mm3 (0.0-0.8); Monocytes % (Auto) 22 % (0-12); Neutrophils # (Auto) 3.1 Thou/mm3 (1.8-7.7); Neutrophils % (Auto) 50 % (37-80); Nucleated Red Blood Cell # 0.00 Thou/mm3 (0.00-0.00); Nucleated Red Blood Cell % 0 /100 WBC (0); Platelet Count 150 Thou/mm3 (140-440); RDW Standard Deviation 52.1 fL (35.1-43.9); Red Blood Count 5.00 Miln/mm3 (4.50-5.90); White Blood Count 6.1 Thou/mm3 (3.8-10.6)
[2025-07-02 06:15] LABS: Alanine Aminotransferase 73 U/L (10-49); Albumin, Serum 4.1 gm/dL (3.5-5.0); Albumin/Globulin Ratio 1.5 (1.2-2.2); Alkaline Phosphatase 134 U/L (46-116); Anion Gap 10 (7-16); Aspartate Amino Transferase 88 U/L (0-34); BUN/Creatinine Ratio 13 Ratio (12-20); Bilirubin,Total 0.8 mg/dL (0.3-1.2); Blood Urea Nitrogen 9 mg/dL (9-23); Calcium 8.8 mg/dL (8.3-10.6); Calcium (Corrected) 8.8 mg/dL (8.5-10.1); Carbon Dioxide 26.0 mMol/L (20.0-31.0); Chloride 95 mMol/L (98-107); Creatinine (Component) 0.7 mg/dL (0.6-1.3); Estimated Creatinine Clearance 150.2 mL/min (>60); Globulin 2.8 gm/dL (2.3-3.5); Glucose 90 mg/dL (74-106); Magnesium 2.6 mg/dL (1.6-2.6); Osmolality,Calculated 261 (275-295); Phosphorous 3.9 mg/dL (2.4-5.1); Potassium 3.7 mMol/L (3.4-5.1); Sodium 131 mMol/L (136-145); Total Protein 6.9 gm/dL (5.7-8.2); eGFR > 60 See Note
[2025-07-02 08:00] VITALS: BP 116/88; PULSE 91; RESP 18; TEMP 36.4; O2SAT 95
[2025-07-02 08:10] VITALS: BP 116/88; PULSE 95
[2025-07-02] MEDS: FOLIC ACID 1 MG TABLET PO (08:10)
[2025-07-02] MEDS: PANTOPRAZOLE 40 MG TABLET PO (08:11)
[2025-07-02] MEDS: THIAMINE 100 MG TABLET PO (08:11)
[2025-07-02] MEDS: ENOXAPARIN SOD INJ 40 MG/0.4 ML SYRINGE SC (08:11)
[2025-07-02] MEDS: POTASSIUM CHLORIDE 10% 20 MEQ/15 ML UDC 40 MEQ PO (08:46)
[2025-07-02 09:05] LABS: Sodium 129 mMol/L (136-145)
[2025-07-02] MEDS: DIAZEPAM INJ 5 MG/ML VIAL 2 ML IVP (11:50)
[2025-07-02 12:00] VITALS: BP 114/92; PULSE 96; RESP 22; TEMP 36.1; O2SAT 96
--- NOTE | 2025-07-02 13:37 | PD.RESPRO ---
Documentation for date of: 07/02/25 Exam Vital Signs Temp Pulse Resp BP Pulse Ox O2 Del Method 97.0 F 96 22 H 114/92 H 96 Room Air 07/02/25 12:00 07/02/25 12:00 07/02/25 12:00 07/02/25 12:00 07/02/25 12:00 07/02/25 12:00 Objective Labs 07/02/25 04:22 07/02/25 08:36 Labs: Laboratory Results - last 24 hr 07/01/25 07/01/25 07/02/25 16:31 20:44 01:20 WBC RBC Hgb Hct MCV MCH MCHC RDW Std Deviation Plt Count Neut % (Auto) Lymph % (Auto) [place] % (Auto) Eos % (Auto) Baso % (Auto) Neut # (Auto) Lymph # (Auto) [place] # (Auto) Eos # (Auto) Baso # (Auto) Immature Gran # (Auto) Absolute Nucleated RBC Immature Gran % Nucleated RBC % Sodium 127 L 127 L 129 L Potassium Chloride Carbon Dioxide Anion Gap BUN Creatinine Estim Creat Clear Calc eGFR BUN/Creatinine Ratio Glucose Calculated Osmolality Calcium Corrected Calcium Phosphorus Magnesium Total Bilirubin AST ALT Alkaline Phosphatase Total Protein Albumin Globulin Albumin/Globulin Ratio 07/02/25 07/02/25 04:22 08:36 WBC 6.1 RBC 5.00 Hgb 15.6 Hct 45.4 MCV 91 MCH 31.2 MCHC 34.4 RDW Std Deviation 52.1 H Plt Count 150 Neut % (Auto) 50 Lymph % (Auto) 24 [place] % (Auto) 22 H Eos % (Auto) 1 Baso % (Auto) 1 Neut # (Auto) 3.1 Lymph # (Auto) 1.4 [place] # (Auto) 1.3 H Eos # (Auto) 0.1 Baso # (Auto) 0.1 Immature Gran # (Auto) 0.15 H Absolute Nucleated RBC 0.00 Immature Gran % 3 H Nucleated RBC % 0 Sodium 131 L 129 L Potassium 3.7 Chloride 95 L Carbon Dioxide 26.0 Anion Gap 10 BUN 9 Creatinine 0.7 Estim Creat Clear Calc 150.2 eGFR > 60 BUN/Creatinine Ratio 13 Glucose 90 Calculated Osmolality 261 L Calcium 8.8 Corrected Calcium 8.8 Phosphorus 3.9 Magnesium 2.6 Total Bilirubin 0.8 AST 88 H ALT 73 H Alkaline Phosphatase 134 H Total Protein 6.9 Albumin 4.1 Globulin 2.8 Albumin/Globulin Ratio 1.5 ABG Interpretation ABG results: 06/30/25 09:47 VBG pH 7.52 VBG pCO2 27 L VBG pO2 73 H VBG Base Excess 1 Quality Measures Quality Measures none Assessment & Plan Assessment Current Active Medications: Generic Name Dose Route Start Last Admin Trade Name Freq PRN Reason Stop Dose Admin Diazepam 5 mg 07/01/25 17:21 07/02/25 11:50 Diazepam Inj 5 Mg/Ml Vial 2 Ml IVP 07/06/25 17:20 5 mg Q4HR PRN Administration CIWA 2-6 Diazepam 10 mg 07/01/25 17:21 07/02/25 08:47 Diazepam Inj 5 Mg/Ml Vial 2 Ml IVP 07/06/25 17:20 10 mg Q4HR PRN Administration CIWA 7-11 Diazepam 15 mg 07/01/25 17:21 Diazepam Inj 5 Mg/Ml Vial 2 Ml IVP 07/06/25 17:20 Q4HR PRN CIWA 12-20 Enoxaparin Sodium 40 mg 06/30/25 11:00 07/02/25 08:11 Enoxaparin Sod Inj 40 Mg/0.4 Ml Syringe SC 07/14/25 10:59 40 mg QDAY NATHAN Administration Folic Acid 1 mg 06/30/25 12:15 07/02/25 08:10 Folic Acid 1 Mg Tablet PO 07/30/25 12:14 1 mg QDAY NATHAN Administration Labetalol HCl 10 mg 06/30/25 15:38 07/01/25 05:16 Labetalol Inj 5 Mg/Ml Vial 20 Ml IVP 07/07/25 00:00 10 mg Q10M PRN Administration SBP > 180 or DBP > 110 Lisinopril 20 mg 07/01/25 09:15 07/02/25 08:10 Lisinopril 20 Mg Tablet PO 07/31/25 09:14 20 mg QDAY NATHAN Administration Ondansetron HCl 4 mg 06/30/25 10:47 Ondansetron Inj 2 Mg/Ml Inj 2 Ml IVP 07/30/25 10:46 Q6H PRN NAUSEA OR VOMITING Protocol Pantoprazole Sodium 40 mg 07/01/25 09:00 07/02/25 08:11 Pantoprazole 40 Mg Tablet PO 07/31/25 08:59 40 mg QDAY NATHAN Administration Sennosides 1 tab 07/02/25 11:15 07/02/25 11:50 Senna Tablet PO 08/01/25 11:14 1 tab QDAY NATHAN Administration Protocol Thiamine HCl 100 mg 07/01/25 09:00 07/02/25 08:11 Thiamine 100 Mg Tablet PO 07/31/25 08:59 100 mg QDAY NATHAN Administration
--- NOTE | 2025-07-02 14:18 | PD.RESDS ---
Planned Discharge Date 07/02/25 DS: Providers Provider Date of admission: 06/30/25 10:47 Primary care physician: Angelito Garcia MD Admitting Provider: Heidy Hernandez MD Attending Provider on Admission: July Pascal MD Attending Provider on DC: Mamadou Araujo MD Discharging Provider: Mamadou Araujo MD DS: Diagnosis Problem List Completed Was Problem List Reviewed/Reconciled?: Yes Hospital Course Hospital Course Hospital course: Summary: Patient is a 50-year-old male with a past medical history of alcohol use disorder, JORDAN, and GERD who presented on 06/30/2025 with a chief complaint of confusion and loss of balance and was admitted directly to the ICU for acute symptomatic hyponatremia likely secondary to alcohol use and alcohol withdrawal symptoms. ER: -Initial vitals were: BP 172/116, HR 103, RR 17, T 98F, O2 sat 96 on room air -Labs significant for: Plt count 105 (L), sodium 116 (L), potassium 3.0 (L), chloride 82 (L), BUN 7 (L), glucose 123 (H), Total bilirubin 1.4 (H), AST 100 (H), ALP 133 (H), Ammonia < 10 (L), UA showed 1+ protein, 3+ ketones, and RBCs. -Imaging included: CXR within normal limits; Head CT negative for acute hemorrhage, mass effect or midline shift. -In the ED, patient was given: Hypertonic saline, Potassium 10 mEq, Thiamine, Midazolam 2mg. Hospital: During the course of hospital admission, patient was placed on CIWA protocol (with thiamine and folic acid supplementation) for his alcohol withdrawal symptoms (CIWA 13) of confusion, visual and auditory hallucinations, and mild hand tremors. His severe hyponatremia (admission sodium 116) was initially treated with hypertonic saline in the ED but this was stopped when patient arrived in the ICU and he was started on fluid restriction of 1000 cc/day and sodium checks q2HR which eventually lead to correction of his hyponatremia over 2 days. Patient also received his home lisinopril for his hypertension (dose eventually increased from 10 mg qD to 20 mg qD), IV Protonix for GERD symptoms, and CPAP at night for JORDAN. Upon discharge, patient had returned to baseline without any symptoms of alcohol withdrawal and he was strongly recommended to quit drinking alcohol as well as to continue fluid restriction of 1.5 Liters per day until you follow up with his primary doctor and checks sodium levels. Patient is safe to discharge to home. Further discharge instructions below. Instructions: -Continue Fluid Restrictions 1.5 Liters per day until you follow up with your primary care provider and check your sodium less. -Please follow up with your primary care provider within one week of discharge -If your symptoms worsen,please seek immediate medical attention and return to your nearest emergency room -If you do not have a primary care provider, [facility] [place] [address], [place] [address], #Alcohol withdrawal #Alcohol use disorder #Hypertensive urgency #Obstructive sleep apnea #GERD #Alcohol hepatitis #Transaminitis #Hiatal hernia #Severe, symptomatic hyponatremia #Hypokalemia #Hypochloremia #Thrombocytopenia Status at Discharge Cognitive/Behavioral Status at Discharge: stable Functional Status at Discharge: independent ambulation Overall Status at Discharge: patient is back to baseline Total Time Spent Providing and/or Coordinating Discharge Services: greater than 30 minutes of care and coordination Patient's care plan was discussed with my attending, Dr. Pascal, and senior resident, Dr. Mitchell. Mamadou Araujo, Internal Medicine, PGY-1 - The patient's plan was discussed with attending Dr. Gwyn Mitchell MD PGY2 Internal Medicine Time Spent with Patient Time attestation: Total time spent providing and/or coordinating discharge services: Time spent: Greater than 30 minutes Exam Vital Signs Temp Pulse Resp BP Pulse Ox O2 Del Method 97.0 F 96 22 H 114/92 H 96 Room Air 07/02/25 12:00 07/02/25 12:00 07/02/25 12:00 07/02/25 12:00 07/02/25 12:00 07/02/25 12:00 Narrative Exam General: Awake and in no acute distress. Conversational and non-toxic appearing. Obese body habitus. Head: Normocephalic, atraumatic. Eyes: Pupils equally round and reactive to light. Anicteric. Mouth/Throat: Moist mucous membranes. Heart: Regular rate and rhythm, no murmurs. No JVD. Lungs: Clear to auscultation with no wheezing or crackles. Non-labored respirations, symmetric chest rise, no use of accessory muscles. Abdomen: Soft, nontender. No guarding or rebound tenderness. No spider angiomas, no caput medusae, no fluid shift. Soft epigastric mass on palpation. Neurologic: Alert and oriented x4, no gross neurological deficit, and patient able to move all 4 extremities. Extremities: No edema. Posterior tibial pulses are 2+ bilaterally. 2+ radial pulse bilaterally. No clubbing or cyanosis. No mottling. No hand tremors. 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 Skin: No rash. Bruising on right lateral lower leg. No jaundice. Discharge Plan Plan Patient Disposition: HOME (Self Care) Patient condition on transfer: Stable Care Plan Goals: Instructions: -Continue Fluid Restrictions 1.5 Liters per day until you follow up with your primary care provider and check your sodium less. -Please follow up with your primary care provider within one week of discharge -If your symptoms worsen,please seek immediate medical attention and return to your nearest emergency room -If you do not have a primary care provider, you may follow up at the [facility] at [address] [place] [address] [address], [place] [address], Prescriptions/Referrals Prescriptions/Med Rec: New lisinopril 20 mg Tablet 20 mg PO QDAY 30 Days Qty: 30 0RF folic acid 1 mg Tablet 1 mg PO QDAY 30 Days Qty: 30 0RF thiamine mononitrate (vit B1) 100 mg Tablet 100 mg PO QDAY 30 Days Qty: 30 0RF Referrals: Angelito Garcia MD [Primary Care Provider, Internal Medicine] Patient/Caregiver Discharge Instructions Discharge Activity: activity as tolerated and resume usual activities Education Materials: Social Drinking vs Problem Drinking, Alcohol Withdrawal: What to Expect, Hyponatremia Dc, ED Dehydration (Adult), ED Hyponatremia Print Language: [place] Stand Alone Forms: [employer] Award Info., Patient Portal Info Letter Discharge Order Discharge Orders: Discharge (Routine); Ordered 07/02/25 Ordered By: Susan Mitchell Quality Discharge Quality Measures VTE prophylaxis Attestestation MD Attestation Patient seen and examined with resident physician Dr. Araujo/ Dr. mitchell. Note reviewed, agree with findings and recommendations.
== END 2025-07-02 14:57 | disposition home or self-care (01) | DRG 897 ==
LOC: SERX 09:34 → SERHOLD 11:30 → S2SX 07-01 06:22 → S2NX 07-01 15:32
PROVIDERS: Nurse Practitioner Primary Care; Student in an Organized Health Care Education/Training Program; Admitting Provider Internal Medicine; Emergency Provider Family Medicine; PCP Internal Medicine; Visit Provider Internal Medicine
DX: F10.239 Alcohol dependence with withdrawal, unspecified (principal); E87.1 Hypo-osmolality and hyponatremia; E27.40 Unspecified adrenocortical insufficiency; Y90.0 Blood alcohol level of less than 20 mg/100 ml; Z98.84 Bariatric surgery status; K21.9 Gastro-esophageal reflux disease without esophagitis; K70.10 Alcoholic hepatitis without ascites; E87.6 Hypokalemia; I10 Essential (primary) hypertension; D69.6 Thrombocytopenia, unspecified; E87.8 Other disorders of electrolyte and fluid balance, not elsewhere classified; I16.0 Hypertensive urgency; G47.33 Obstructive sleep apnea (adult) (pediatric); K44.9 Diaphragmatic hernia without obstruction or gangrene; D69.59 Other secondary thrombocytopenia
CPT/HCPCS: 36415; 70450; 71045; 76705; 80053; 80061; 80307; 80320; 81001; 82140; 82436; 82570; 82803; 83036; 83735; 83880; 84100; 84132; 84133; 84295; 84300; 84484; 84540; 85025; 85610; 85730; 87081; 93005; 96361; 96365; 96366; 96375; 99285; A4314; J1650; J2250; J2470; J3360; J3411; J3475; J3480; J3490; J7050; J7070; J7131; A9270; G0480; J1920

== ENCOUNTER → 2025-07-08 | Outpatient (CLI) | payer BC, SELFPAY ==
[2025-07-08 13:13] LABS: Basophils # (Auto) 0.1 Thou/mm3 (0.0-0.2); Basophils % (Auto) 2 % (0-2.5); Eosinophils # (Auto) 0.1 Thou/mm3 (0.0-0.5); Eosinophils % (Auto) 1 % (0-10); Hematocrit 43.1 % (41.0-53.0); Hemoglobin 14.2 g/dL (13.5-16.0); Immature Granulocytes Auto 0.02 Thou/mm3 (0.00-0.00); Lymphocytes # (Auto) 1.7 Thou/mm3 (1.0-4.8); Lymphocytes % (Auto) 29 % (10-50); Mean Corpuscular HGB Conc 32.9 g/dl (31.0-37.0); Mean Corpuscular Hemoglobin 31.2 pg (25.0-35.0); Mean Corpuscular Volume 95 fL (80-100); Monocytes # (Auto) 0.9 Thou/mm3 (0.0-0.8); Monocytes % (Auto) 15 % (0-12); Neutrophils # (Auto) 3.1 Thou/mm3 (1.8-7.7); Neutrophils % (Auto) 53 % (37-80); Nucleated Red Blood Cell # 0.00 Thou/mm3 (0.00-0.00); Nucleated Red Blood Cell % 0 /100 WBC (0); Platelet Count 391 Thou/mm3 (140-440); RDW Standard Deviation 57.7 fL (35.1-43.9); Red Blood Count 4.55 Miln/mm3 (4.50-5.90); White Blood Count 5.9 Thou/mm3 (3.8-10.6)
[2025-07-08 13:25] LABS: Glucose Estimated Average 108 mg/dL (80-131); Hemoglobin A1C 5.4 % Hgb (4.8-6.0)
[2025-07-08 13:34] LABS: Alanine Aminotransferase 142 U/L (10-49); Albumin, Serum 3.9 gm/dL (3.5-5.0); Albumin/Globulin Ratio 1.5 (1.2-2.2); Alkaline Phosphatase 95 U/L (46-116); Anion Gap 10 (7-16); Aspartate Amino Transferase 89 U/L (0-34); BUN/Creatinine Ratio 16 Ratio (12-20); Bilirubin,Total 0.5 mg/dL (0.3-1.2); Blood Urea Nitrogen 11 mg/dL (9-23); Calcium 8.9 mg/dL (8.3-10.6); Calcium (Corrected) 9.0 mg/dL (8.5-10.1); Carbon Dioxide 25.5 mMol/L (20.0-31.0); Chloride 108 mMol/L (98-107); Creatinine (Component) 0.7 mg/dL (0.6-1.3); Free T4 (Free Thyroxine) 1.38 ng/dL (0.89-1.76); Globulin 2.6 gm/dL (2.3-3.5); Glucose 125 mg/dL (74-106); Osmolality,Calculated 285 (275-295); Potassium 3.7 mMol/L (3.4-5.1); Sodium 143 mMol/L (136-145); Thyroid Stimulating Hormone 2.52 uIU/mL (0.55-4.78); Total Protein 6.5 gm/dL (5.7-8.2); Vitamin B12 952 pg/mL (211-911); Vitamin D 25 Hydroxy Total 37.5 ng/mL (7.3-40.2); eGFR > 60 See Note
== END | disposition home or self-care (01) ==
LOC: COPL 12:44
PROVIDERS: PCP Internal Medicine; Referring Provider Internal Medicine; Visit Provider Internal Medicine
DX: Z00.00 Encounter for general adult medical examination without abnormal findings (principal)
CPT/HCPCS: 36415; 80053; 82306; 82607; 83036; 84439; 84443; 85025